=== PATIENT | female | born 1995 | race Hispanic/Latino ===

== ENCOUNTER 2017-06-22 21:16 | Inpatient (IN) | payer MEDICAID, SELFPAY ==
[2017-06-22] MEDS ORDERED: Ondansetron HCl/PF 4 MG/2 ML Vial ONE (22:07)
[2017-06-22 22:27] LABS: #Basophils 0.1 thou/uL (0.0-0.2); #Lymphocytes 2.1 thou/uL (1.20-3.40); #Monocytes 0.6 thou/uL (0.11-0.59); #Neutrophils 9.2 thou/uL (1.40-6.50); %Basophils 0.5 % (0.0-1.0); %Eosinophils 0.2 % (0.0-10.0); %Lymphocytes 17.3 % (28.0-48.0); %Monocytes 5.4 % (0.0-4.0); %Neutrophils 76.7 % (31.0-61.0); Hemoglobin 15.2 g/dL (12.0-16.0); Mean Corpuscular HGB CONC 33.7 g/dL (32.0-36.0); Mean Corpuscular Hemoglobin 28.9 pg (25.0-35.0); Mean Corpuscular Volume 85.7 fl (77.0-87.0); Mean Platelet Volume 6.8 fL (7.4-10.4); Platelet Count 460 thou/uL (130-400); Red Blood Cell (RBC) Count 5.27 mill/uL (4.00-5.20)
[2017-06-22 22:47] LABS: ALT (SGPT) 44 U/L (8-55); AST (SGOT) 39 U/L (5-34); Albumin 4.2 g/dL (3.5-5.0); Alkaline Phosphatase 114 U/L (40-150); Anion Gap 19 mmol/L (10-20); BUN (Urea Nitrogen) 13 mg/dL (7.0-18.7); Bilirubin, Total 0.5 mg/dL (0.2-1.2); Calc. Creatinine Clearance 0 mL/min (70-130); Calcium 9.2 mg/dL (7.8-10.44); Carbon Dioxide 12 mmol/L (22-29); Chloride 113 mmol/L (98-107); Estimated GFR-MDRD 76; Globulin 3.2 g/dL (2.4-3.5); Glucose 264 mg/dL (70-105); Potassium 3.9 mmol/L (3.5-5.1); Protein, Total 7.4 g/dL (6.0-8.3); Sodium 140 mmol/L (136-145)
[2017-06-23] MEDS ORDERED: D5 1/2 NS w/20 mEq KCL 1,000 ML ONE (00:17)
[2017-06-23] MEDS ORDERED: D5 1/2 NS w/20 mEq KCL 1,000 ML IV PRN (03:49)
[2017-06-23] MEDS ORDERED: NS 0.9% w/ 20 MEQ KCL 1,000 ML IV PRN ×2 (03:49)
[2017-06-23] MEDS ORDERED: Dextrose 5 %-0.45 % NaCl 1,000 ML IV PRN (03:49)
[2017-06-23] MEDS ORDERED: Sodium Chloride 0.9% 1,000 ML IV PRN ×4 (03:49)
[2017-06-23] MEDS ORDERED: CCU Electrolyte Replacement 1 EACH IVPB ONE (03:49)
[2017-06-23] MEDS ORDERED: Potassium Chloride 40 MEQ in Sodium Chloride 0.9% 250 ML 250 ML IVPB PRN (03:51)
[2017-06-23] MEDS ORDERED: CCU ELECTROLYTE REPLACEMENT PROTOCOL FS PRN (03:51)
[2017-06-23] MEDS ORDERED: Potassium Phosphate 9 MMOL in Sodium Chloride 0.9% 100 ML IVPB PRN (03:51)
[2017-06-23] MEDS ORDERED: Potassium Phosphate 12 MMOL in Sodium Chloride 0.9% 250 ML 250 ML IV PRN (03:51)
[2017-06-23] MEDS ORDERED: Potassium Chloride 40 MEQ in Premix Bag 1 BAG IVPB PRN (03:51)
[2017-06-23] MEDS ORDERED: Magnesium 2 GM/NS 0.9% 100 ML 2 GM in Premix Bag 1 BAG IVPB PRN (03:51)
[2017-06-23] MEDS ORDERED: Magnesium Oxide 400 MG TAB PO PRN ×2 (03:51)
[2017-06-23] MEDS ORDERED: Potassium Chloride 20 MEQ TAB PO PRN (03:51)
[2017-06-23] MEDS ORDERED: Potassium Phosphate 15 MMOL in Sodium Chloride 0.9% 250 ML 250 ML IV PRN (03:51)
[2017-06-23 05:19] LABS: Anion Gap 13 mmol/L (10-20); BUN (Urea Nitrogen) 12 mg/dL (7.0-18.7); Calc. Creatinine Clearance 0 mL/min (70-130); Calcium 8.8 mg/dL (7.8-10.44); Carbon Dioxide 14 mmol/L (22-29); Chloride 115 mmol/L (98-107); Estimated GFR-MDRD Greater than 90; Glucose 156 mg/dL (70-105); Potassium 3.4 mmol/L (3.5-5.1); Sodium 139 mmol/L (136-145)
--- NOTE | 2017-06-23 06:40 | HP ---
CHIEF COMPLAINT: DKA. HISTORY OF PRESENT ILLNESS: She transferred from another hospital [place] because of DKA. She presented to the ED with nausea, vomiting, and tachycardia. She was over there with an anion gap of 26, sugar was high, so they started insulin drip over there and started transfer here. Further questioning, she says she has been out of insulin for a few days and then started having nausea, vomiting, and normally she complains of any medication. Medication she takes at home Levemir 15 and 35 insulin. She lost her insurance , so she did not take her medication. In the ER, she wanted to have DKA and started IV insulin drip with D5 because sugar was less than 250. PAST MEDICAL HISTORY: Diabetes type I. PAST OB-EMPLOYEE BENEFITS COORDINATOR HISTORY: 1, para 1. PAST SURGICAL HISTORY: . PSYCHIATRIC HISTORY: No previous history. SOCIAL HISTORY: Denies alcohol use. Denies drug use. Has no smoking history. FAMILY HISTORY: Both parents have diabetes. In the ER, she was given Zofran, Rocephin, and potassium. REVIEW OF SYSTEMS: She denies any fever. No throat symptoms, no blurry vision. Cardiovascular: She was tachycardic. No chest pain, no short of breath. Respiratory: No wheezing, no cough. Gastrointestinal: She does have nausea, vomiting, no diarrhea. Genitourinary: No belly pain. Musculoskeletal : No back pain. Endocrine: She does have polyuria, polydipsia. All other review of systems negative except in the H&P. PHYSICAL EXAMINATION: GENERAL: When examined her, she is tachycardic. VITAL SIGNS: Pulse 180, blood pressure 170/72, respiration rate 18, temperature 98.4. She is alert. HEENT: Atraumatic, normocephalic. Pupils are round and reactive. Extraocular muscles intact. Ear and throat are normal. Tongue mucosa moist. NECK: Supple, no JVD, no thyromegaly, no carotid bruit. LUNGS: Chest is normal risk of breathing, no added sound. CARDIOVASCULAR: S1, S2 audible. No S3, S4. ABDOMEN: Soft. Bowel sounds audible, no organomegaly. No guarding, rigidity. EXTREMITIES: No pedal edema seen at times. NEUROLOGIC: No focal deficit. LABORATORY DATA: Shows WBC 12.1, hemoglobin 15.2, hematocrit 45.1, platelets 460. Chemistry: Sodium 140, potassium 3.9, chloride 113, carbon dioxide 12, anion gap 19, BUN 30, creatinine 0.9, 265 glucose. AST 39, ALT 44, albumin 4.2 , globulin 3.2. ASSESSMENT AND PLAN: Diabetic ketoacidosis with type 1 diabetes with plan to admit to ICU with DKA protocol, IV insulin, IV fluid, D5 with normal saline with potassium. BMP q.6 hour. Urinary tract infection; will IV Rocephin 1 gm daily and obtain urine culture. Deep venous thrombosis prophylaxis, Lovenox. MTDD
[2017-06-23 08:03] LABS: Anion Gap 14 mmol/L (10-20); BUN (Urea Nitrogen) 12 mg/dL (7.0-18.7); Calc. Creatinine Clearance 0 mL/min (70-130); Calcium 8.6 mg/dL (7.8-10.44); Carbon Dioxide 15 mmol/L (22-29); Chloride 115 mmol/L (98-107); Estimated GFR-MDRD Greater than 90; Glucose 215 mg/dL (70-105); Potassium 3.6 mmol/L (3.5-5.1); Sodium 140 mmol/L (136-145)
[2017-06-23] MEDS ORDERED: Insulin Detemir 100 UNITS/ML 18 UNITS in Pre-Filled Syringe 1 EACH SC SCH (10:15)
[2017-06-23 10:18] LABS: ALT (SGPT) 48 U/L (8-55); AST (SGOT) 73 U/L (5-34); Albumin 3.1 g/dL (3.5-5.0); Alkaline Phosphatase 82 U/L (40-150); Anion Gap 13 mmol/L (10-20); BUN (Urea Nitrogen) 11 mg/dL (7.0-18.7); Bilirubin, Total 0.6 mg/dL (0.2-1.2); Calc. Creatinine Clearance 0 mL/min (70-130); Calcium 8.3 mg/dL (7.8-10.44); Carbon Dioxide 15 mmol/L (22-29); Chloride 115 mmol/L (98-107); Estimated GFR-MDRD Greater than 90; Globulin 2.3 g/dL (2.4-3.5); Glucose 281 mg/dL (70-105); Potassium 3.6 mmol/L (3.5-5.1); Protein, Total 5.4 g/dL (6.0-8.3); Sodium 139 mmol/L (136-145)
[2017-06-23] MEDS ORDERED: Insulin Regular 300 UNITS/3 ML VIAL SC PRN (10:38)
[2017-06-23] MEDS ORDERED: Dextrose 50% Abboject 50 ML SYRINGE SLOW IVP PRN (10:38)
[2017-06-23] MEDS ORDERED: Dextrose 5% in Water 1,000 ML IV PRN (10:38)
[2017-06-23 11:00] LABS: Hemoglobin A1c 13.2 % (4.0-6.0)
[2017-06-23] MEDS ORDERED: Insulin Detemir 100 UNITS/ML 30 UNITS in Pre-Filled Syringe SC SCH (11:00)
[2017-06-23 12:49] LABS: Anion Gap 13 mmol/L (10-20); BUN (Urea Nitrogen) 11 mg/dL (7.0-18.7); Calc. Creatinine Clearance 0 mL/min (70-130); Calcium 8.5 mg/dL (7.8-10.44); Carbon Dioxide 14 mmol/L (22-29); Chloride 114 mmol/L (98-107); Estimated GFR-MDRD Greater than 90; Glucose 332 mg/dL (70-105); Potassium 3.8 mmol/L (3.5-5.1); Sodium 137 mmol/L (136-145)
--- NOTE | 2017-06-23 13:37 | PDOC.EVN ---
Event Note - Event Note Event Note: S: pt is Seen today, alert and oriented, No nausea or vomting. She is hungry to eat food. O: reviwed all the vitals and Labs, Pt AG is closed. A: DKA/ HTN/ Morbidobesity P: Plan to Transition to SC insulin, discussed with nurse, Will do Levemnir 30untis Now and d/c insulin drip in 2 hrs, pt had Totoal insulin requirement of 12 hrs is 100untis, Will need to give bed time insulin too to abvoide rebound hyperglycemia, will do 10untis, and plan to graduaally increase to keep BG 140- 180 and fasting < 110. Pt will need to reffered to Endocrinology as Outpatient.
[2017-06-23] MEDS ORDERED: Insulin Regular 300 UNITS/3 ML VIAL ONE (17:49)
[2017-06-23] MEDS ORDERED: Insulin Detemir 100 UNITS/ML 25 UNITS in Pre-Filled Syringe 1 EACH SC SCH (18:15)
[2017-06-23] MEDS ORDERED: Insulin Detemir 100 UNITS/ML 10 UNITS in Pre-Filled Syringe SC SCH (21:00)
[2017-06-23] MEDS ORDERED: cefTRIAXone\\ROCEPHIN 1 GM in Sodium Chloride 0.9% 100 ML IVPB SCH (22:00)
[2017-06-23 22:15] LABS: Anion Gap 14 mmol/L (10-20); BUN (Urea Nitrogen) 9 mg/dL (7.0-18.7); Calc. Creatinine Clearance 0 mL/min (70-130); Carbon Dioxide 17 mmol/L (22-29); Chloride 109 mmol/L (98-107); Estimated GFR-MDRD Greater than 90; Glucose 188 mg/dL (70-105); Potassium 3.2 mmol/L (3.5-5.1); Sodium 137 mmol/L (136-145)
[2017-06-24 05:53] LABS: Anion Gap 16 mmol/L (10-20); BUN (Urea Nitrogen) 7 mg/dL (7.0-18.7); Calc. Creatinine Clearance 0 mL/min (70-130); Calcium 8.9 mg/dL (7.8-10.44); Carbon Dioxide 15 mmol/L (22-29); Chloride 110 mmol/L (98-107); Estimated GFR-MDRD Greater than 90; Glucose 104 mg/dL (70-105); Sodium 138 mmol/L (136-145)
[2017-06-24 06:01] LABS: Potassium 2.9 mmol/L (3.5-5.1)
[2017-06-24 06:16] VITALS: BMI 29.0
[2017-06-24] MEDS: Potassium Chloride 40 MEQ in Sodium Chloride 0.9% 250 ML 250 ML IVPB SCH ×2 (08:00→08:21)
[2017-06-24] MEDS ORDERED: Sodium Chloride 0.9% 10 ML ONE (08:19)
[2017-06-24] MEDS ORDERED: Insulin Detemir 100 UNITS/ML 30 UNITS in Pre-Filled Syringe SC SCH (09:00)
[2017-06-24 10:52] LABS: Magnesium 1.5 mg/dL (1.7-2.2); Potassium 3.4 mmol/L (3.5-5.1)
[2017-06-24 11:46] VITALS: BP 94/57; TEMP 98.1
[2017-06-24] MEDS ORDERED: Magnesium 2 GM/NS 0.9% 100 ML 2 GM in Premix Bag 1 BAG IVPB SCH (15:15)
--- NOTE | 2017-06-24 16:26 | DIS ---
DATE OF ADMISSION: 06/23/2017 DATE OF DISCHARGE: 06/24/2017 ADMITTING DIAGNOSIS: Acute diabetic ketoacidosis. DISCHARGE DIAGNOSIS: Acute diabetic ketoacidosis. SECONDARY DIAGNOSIS: Hypertension. HISTORY OF PRESENT ILLNESS AND HOSPITAL COURSE: In brief, this is a 21-year-old young white female w ith a known history of type 1 diabetes, who was transferred from [place] for DKA and she was admitte d to the ER and had an anion gap of 26 with very high blood sugars. The patient was started on insul in drip per DKA protocol and was closely monitored. The patient needed 100 units of insulin total for 12 hours, so she was started on 30 units of Levemir and then after 2 hours her insulin drip was stopped. The patient had a rebound hypoglycemia going u p to 300, so she was started on high intensity sliding scale. The same day, she was started on 25 un its of Levemir again, so her blood sugar the following morning was 115, and she maintained less than 200. The patient was taking regular insulin of 35 units in the morning and Levemir of 25 units in th e evening, which was not sufficient and her A1c was 13.2. The patient had a very poor blood sugar co ntrol prior to this. So, the patient was recommended to be seen by tax economist as outpatient. H er anion gap was closed and blood sugars are well controlled on the day of discharge. She had some e lectrolyte abnormalities with low potassium and with low magnesium, which was corrected with protocol . The patient is discharged home in stable condition. PHYSICAL EXAMINATION: VITAL SIGNS: Blood pressures are 110/58, heart rate is 74, respirations 18, saturation 100%. GENERAL: The patient is moderately built and moderately nourished. She does not appear to be in acu te distress at this time. She is alert and oriented x3. HEENT: Atraumatic, normocephalic. PERRLA. Extraocular muscles were intact. Oral mucosa is pink an d moist. CARDIOVASCULAR: S1 and S2 normal. No murmurs, rubs or gallops. LUNGS: Bilateral air entry was equal. No wheezing, no crackles. DISCHARGE MEDICATIONS: The patient was discharged home on Levemir 35 units in the morning and 25 uni ts in the evening with before breakfast and before dinner. DISCHARGE INSTRUCTIONS: Continue activity as tolerated. Advised to follow up with primary care phys ician and have her referred to Endocrinology. I advised the patient to check her blood sugars 2-3 ti mes a day and educated about keeping her fasting blood sugars less than 110. Advised to stick to a diabetic diet. Advised to increase physical activity to lose weight. Advised to return back to the ER if the patient develops any persistent nausea, vomiting, and high bl ood sugars. I spent 35 minutes with this patient on the day of discharge.
[2017-06-24] MEDS ORDERED: cefTRIAXone\\ROCEPHIN 1 GM, Syringe 0.4 ML in Sterile Water 9.6 ML SLOW IVP SCH (22:00)
== END 2017-06-24 15:55 | disposition home or self-care (01) | DRG 638 ==
LOC: ERS 21:16 → ERHOLD 06-23 02:09 → 2NO 06-24 00:58 → 3SE 06-24 07:54
PROVIDERS: ADMIT Family Medicine; ATTEND Family Medicine
DX: E10.10 Type 1 diabetes mellitus with ketoacidosis without coma (principal); N39.0 Urinary tract infection, site not specified; E66.01 Morbid (severe) obesity due to excess calories; I10 Essential (primary) hypertension; Z79.4 Long term (current) use of insulin; Z68.29 Body mass index [BMI] 29.0-29.9, adult
CPT/HCPCS: 36415; 36416; 80048; 82010; 83036; 83735; 96365; 96366; 96367; 96372; 96375; 96376; A4216; J0696; J1815; J2405; J3480; J7050

== ENCOUNTER 2020-04-26 18:59 | Observation (INO) | payer OTHER ==
[2020-04-26 20:08] LABS: #Eosinphils 0.1 thou/uL (0.0-0.7); #Lymphocytes 1.6 thou/uL (1.20-3.40); #Monocytes 0.4 thou/uL (0.11-0.59); #Neutrophils 8.6 thou/uL (1.40-6.50); %Basophils 0.2 % (0.0-1.0); %Eosinophils 0.5 % (0.0-10.0); %Lymphocytes 14.9 % (21.0-51.0); %Monocytes 4.1 % (0.0-10.0); %Neutrophils 80.3 % (42.0-75.0); Hemoglobin 12.5 g/dL (12.0-16.0); Mean Corpuscular HGB CONC 35.2 g/dL (32.0-36.0); Mean Corpuscular Hemoglobin 28.1 pg (27.0-31.0); Mean Platelet Volume 6.6 fL (7.4-10.4); Platelet Count 481 thou/uL (130-400); RBC Distribution Width 11.9 % (11.5-14.5); Red Blood Cell (RBC) Count 4.43 mill/uL (4.20-5.40); White Blood Cell (WBC) Count 10.7 thou/uL (4.8-10.8)
[2020-04-26 20:29] LABS: ALT (SGPT) 34 U/L (8-55); AST (SGOT) 26 U/L (5-34); Albumin 3.4 g/dL (3.5-5.0); Alkaline Phosphatase 102 U/L (40-110); Anion Gap 16 mmol/L (10-20); BUN (Urea Nitrogen) 12 mg/dL (7.0-18.7); Bilirubin, Total 0.4 mg/dL (0.2-1.2); Calc. Creatinine Clearance 0 mL/min (70-130); Calcium 9.4 mg/dL (7.8-10.44); Carbon Dioxide 22 mmol/L (22-29); Chloride 97 mmol/L (98-107); Estimated GFR-MDRD Greater than 90; Globulin 3.7 g/dL (2.4-3.5); Glucose 366 mg/dL (70-105); Potassium 4.1 mmol/L (3.5-5.1); Protein, Total 7.1 g/dL (6.0-8.3); Sodium 131 mmol/L (136-145)
[2020-04-26 20:53] LABS: Base Excess-Venous -1.6 mmol/L (-2.0 to 3.0); Bicarbonate (HCO3v) 23.9 mmol/L (22.0-28.0); CO2 Tension (PvCO2) 42.1 mmHg (40.0-50.0); Calcium, Ionized 1.14 mmol/L (1.15-1.33); Chloride 97 mmol/L (98-107); Hemoglobin - Calc 12.5 g/dL (12.0-16.0); Sodium 131 mmol/L (138-145); T. Carbon Dioxide 25.2 mmol/L (22.0-28.0); vO2 Saturation-calc 83.7 % (60.0-85.0)
[2020-04-26] MEDS ORDERED: Metoclopramide HCl 10 MG/2 ML VIAL ONE (21:34)
[2020-04-26] MEDS ORDERED: diphenhydrAMINE 50 MG/ML VIAL ONE (21:34)
[2020-04-26] MEDS ORDERED: Acetaminophen 325 MG TAB PO PRN (23:15)
[2020-04-26] MEDS ORDERED: Calcium Carbonate 500 MG ChewTAB PO PRN (23:15)
[2020-04-26] MEDS ORDERED: Ondansetron PF 4 MG/2 ML Vial SLOW IVP PRN (23:15)
--- NOTE | 2020-04-26 23:22 | PDOC.FPRHP ---
- History of Present Illness Chief Complaint: uncontrolled DM1 in History of Present Illness: 24 yo at 12wks gestation by LMP directly admitted from [facility] on 04/26 for uncontrolled DM1 in . Patient's A1c in December 2019 was 12.3. She takes 35units of levemir BID and Humalog SSI, 5units for every 50 over 150. Angela explains she typically uses 15-25units per day for correction. Her fasting glucose ranges from 190-200s and her post-prandials are often greater than 300. She was previously seen by Dr. Ghotra in this who performed a dating ultrasound and referred her to our clinic due to her high risk. Patient's last resulted in a pLTCS for failure to progress. She was induced due to preeclampsia with severe features at 36 weeks and delivered at 36.2. Patient also complains of nausea and vomiting for the duration of this , explaining it is sometimes difficult for her to tolerate food. Patient's PCP is Dr. Urban in [place]. She does not have an energy administrator. - Allergies/Adverse Reactions Allergies Allergy/AdvReac Type Severity Reaction Status Date / Time No Known Allergies Allergy Verified 04/26/20 22:40 - Home Medications Medication Instructions Recorded Confirmed Type Insulin Detemir 100 UNITS/ML 25 unit SQ ACHS 30 Days vial 06/24/17 04/26/20 Rx [Levemir] Insulin Detemir 100 UNITS/ML 35 units FS DAILY-AC 30 Days vial 06/24/17 04/26/20 Rx [Levemir] - History PMHx: DM1, diagnosed age 7. SAB 2015 (from [facility] record review of last ) PSHx: pLTCS 2017 at 36.2 wks for failure to progress following induction at 36wks for preeclampsia with severe features FHx: Non-contributory Social: Denies tobacco, alcohol or drug use - Review of Systems General: denies: fever/chills Eyes: denies: vision changes Respiratory: denies: shortness of breath Cardiovascular: denies: chest pain Gastrointestinal: reports: nausea, vomiting. denies: diarrhea, constipation, abdominal pain Genitourinary: denies: dysuria, polyuria Skin: denies: rashes, itching Musculoskeletal: denies: pain Neurological: denies: weakness - Vital signs BP: 144/78 HR: 107 RR: 18 Tmax: 98.9 Pox: 97% on RA Wt: 86kg - Physical Exam Constitutional: NAD, awake, alert and oriented HEENT: normocephalic and atraumatic, PERRLA, no scleral icterus, grossly normal vision, grossly normal hearing Neck: FROM Heart: RRR, no murmurs/rubs/gallops, pulses present, no edema Lungs: CTAB, no respiratory distress, no wheezing Abdomen: soft, non-tender Musculoskeletal: normal structure, ROM grossly normal Neurological: no focal deficit Skin: no rash/lesions Psychiatric: normal mood and affect, good judgment and insight, intact recent and remote memory FMR H&P: Results - Labs Result Diagrams: 04/26/20 19:53 04/26/20 19:53 Lab results: WBC 10.7 thou/uL (4.8-10.8) 04/26/20 19:53 Hgb 12.5 g/dL (12.0-16.0) 04/26/20 19:53 Hct 35.4 % (36.0-47.0) L 04/26/20 19:53 MCV 80.0 fL (78.0-98.0) 04/26/20 19:53 Plt Count 481 thou/uL (130-400) H 04/26/20 19:53 Neutrophils % 80.3 % (42.0-75.0) H 04/26/20 19:53 VBG pCO2 42.1 mmHg (40.0-50.0) 04/26/20 20:48 VBG pO2 50.3 mmHg (35.0-45.0) H 04/26/20 20:48 Sodium 131 mmol/L (136-145) L 04/26/20 19:53 Potassium 4.1 mmol/L (3.5-5.1) 04/26/20 19:53 Chloride 97 mmol/L (98-107) L 04/26/20 19:53 Carbon Dioxide 22 mmol/L (22-29) 04/26/20 19:53 BUN 12 mg/dL (7.0-18.7) 04/26/20 19:53 Creatinine 0.75 mg/dL (0.6-1.1) 04/26/20 19:53 Glucose 366 mg/dL (70-105) H 04/26/20 19:53 Calcium 9.4 mg/dL (7.8-10.44) 04/26/20 19:53 Total Bilirubin 0.4 mg/dL (0.2-1.2) 04/26/20 19:53 AST 26 U/L (5-34) 04/26/20 19:53 ALT 34 U/L (8-55) 04/26/20 19:53 Alkaline Phosphatase 102 U/L (40-110) 04/26/20 19:53 Serum Total Protein 7.1 g/dL (6.0-8.3) 04/26/20 19:53 Albumin 3.4 g/dL (3.5-5.0) L 04/26/20 19:53 FMR H&P: A/P - Plan 24 yo at 12.0 wks by LMP presenting for uncontrolled DM1 Uncontrolled DM1 in -A1c 12/2019 12.3 -Home meds: 35units levemir BID, Humalog SSI (15-25u per day). Fasting BG 200s, postprandials >300. -Ordered 37units levemir BID, 5units humalog pre-meal, Aggressive sliding scale -Will monitor BGs and adjust pre-meal insulin as needed sIUP in first trimester -12.0wks based on ONI of 11/08/2020. Patient says she is 13.0wks but is unsure. -Dating ultrasound performed by Dr. Ghotra, those records have been requested. Unsure if ONI patient reports is based on LMP or dating ultrasound. -Consider MFM consult inpatient to perform anatomy US Hx of preeclampsia with severe features in 1st -BP 144/78 on admission, continue to monitor -24 hour urine protein pending Nausea and vomiting with -vitamin B6, unisom PCP: Wilmar PCP-OB: Arnold Dispo: discharge pending regulation of glucose and establishing adequate insulin regimen FMR H&P: Upper Level - Plan Date/Time: 04/26/20 [id number] ISanju DO, have evaluated this patient and agree with findings/plan as outlined by international logistics analyst resident. Pertinent changes/additions are listed here. 24 yo at 12+ wks GA with type 1 dm she presents as a direct admit from clinic for uncontrolled diabetes, she is asymptomatic at this time. She has taken her morning insulin but not her evening basal. she covers meal time insulin and does not use pre-meal, it has been >5years since she has had dka. she is in NAD on exam, abd nttp, pulses present. initial labs show elevated glucose, otherwise wnl. we will continue her basal insulin and begin pre-meal insulin. aggressive SSI insulin ordered, increase regimen based on coverage needs. admit to silverware assembler obs for ELOS<48hrs.
[2020-04-26] MEDS ORDERED: Insulin Glargine 37 UNITS in Pre-Filled Syringe 1 EACH SC SCH (23:30)
[2020-04-26] MEDS ORDERED: Dextrose 50% Abboject 50 ML SYRINGE SLOW IVP PRN (23:47)
[2020-04-26] MEDS ORDERED: Dextrose 5% in Water 1,000 ML IV PRN (23:47)
[2020-04-27] MEDS: HumaLOG 300 UNITS/3 ML VIAL SC PRN ×2 (00:09→06:04)
--- NOTE | 2020-04-27 06:48 | PDOC.FM ---
- Subjective Subjective: Pt denies polyuria, polyphagia states she has had some weight loss since becoming , due to n/v denies current nausea denies vag bleeding, d/c, pelvic cramping Pt sates she had a miscarriage @ 9 weeks and has hx of pLTCS @ term. - Objective MAR Reviewed: Yes Vital Signs & Weight: Vital Signs (12 hours) Temp Pulse Resp BP Pulse Ox 04/26/20 22:15 98.9 F 107 H 18 144/78 H 97 Weight Weight 85.956 kg I&O: 04/25/20 04/26/20 04/27/20 06:59 06:59 06:59 Output Total 200 Balance -200 Result Diagrams: 04/26/20 19:53 04/26/20 19:53 Phys Exam - Physical Examination Constitutional: NAD HEENT: moist MMs, sclera anicteric Neck: supple, full ROM Respiratory: no wheezing, no rales, no rhonchi, clear to auscultation bilateral Cardiovascular: RRR, no significant murmur, no rub Gastrointestinal: soft, non-tender, no distention, positive bowel sounds Musculoskeletal: no edema, pulses present Neurological: non-focal, moves all 4 limbs Lymphatic: no nodes Psychiatric: normal affect, A&O x 3 Skin: no rash, normal turgor, cap refill <2 seconds Dx/Plan (1) 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 White Class D pre-gestational DM, with hyperglycemia - dx with Type 1 DM at Age 7 y/o -A1c 12/2019 12.3 -Home meds: 35units levemir BID, Humalog SSI (15-25u per day). Fasting BG > 200s, postprandials >300 and sent form clinic for insulin titration in hx. -Ordered 37 units levemir BID, 5 units humalog pre-meal, Aggressive sliding scale as well. -received 11 units @ 6 AM this morning SSI. will titrate up long acting as appropriate. -Will monitor BGs and adjust pre-meal/long acting insulin as needed -h-hydroxybutrate 1.47 - daily BMP sIUP in first trimester -12.1wks based on ONI of 11/08/2020. Patient says she is 13.0wks but is unsure. -Dating ultrasound performed by Dr. Ghotra, those records have been requested. Unsure if ONI patient reports is based on LMP or dating ultrasound. -Consider MFM consult inpatient to perform - high dose folic acid 4 mg daily. Elevated BP without dx of HTN. -will continue vital signs, could be dx of cHTN. -treat if >160/110 -24 hr urine protein Hx of preeclampsia with severe features in 1st -BP 144/78 on admission, continue to monitor -24 hour urine protein pending Nausea and vomiting with -vitamin B6, dicyclomine PCP: Wilmar PCP-OB: Arnold Dispo: inpt>2 hx nights anticipated. titrating insulin regimen to meet pt's needs. Addendum - Attending - Attending Attestation Date/Time: 04/27/20 1032 I personally evaluated the patient and discussed the management with Dr. Hutson I agree with the History, Examination, Assessment and Plan documented above with any addition or exceptions noted below. Increased lantus to 45 units BID and novalog to [address] Hutson spoke with Dr. Ghotra's office who stated patient had a dating US on 03/28 that dated her at 9.2 wks giving her a final EDC of 10/29/20 and making her 13.4 wks today. Start ASA for PIH PPx. Continue 24 hr urine protein. If BP continues to be >140/90 will order baseline EKG. Will continue aggressive titration of insulin with goal fasting <95 and 2hr PP <120
[2020-04-27] MEDS ORDERED: HumaLOG 300 UNITS/3 ML VIAL SC SCH (08:00)
[2020-04-27] MEDS ORDERED: Insulin Glargine 37 UNITS in Pre-Filled Syringe 1 EACH SC SCH (09:00)
[2020-04-27] MEDS ORDERED: Folic Acid 1 MG TAB PO SCH (09:00)
[2020-04-27] MEDS ORDERED: Aspirin 81 mg Enteric Coated Tablet PO SCH (09:45)
[2020-04-27] MEDS ORDERED: Insulin Regular 300 UNITS/3 ML VIAL SC PRN (10:20)
[2020-04-27] MEDS: Prenatal Vitamin 1 TAB PO SCH (10:57)
[2020-04-27] MEDS: Folic Acid 1 MG TAB PO SCH (10:57)
[2020-04-27] MEDS: Insulin Glargine 45 UNITS in Pre-Filled Syringe 1 EACH SC SCH ×2 (10:58→21:16)
[2020-04-27] MEDS: HumaLOG 300 UNITS/3 ML VIAL SC SCH ×3 (10:59→19:16)
[2020-04-27 14:06] LABS: Anion Gap 13 mmol/L (10-20); BUN (Urea Nitrogen) 7 mg/dL (7.0-18.7); Calc. Creatinine Clearance 220 mL/min (70-130); Calcium 9.1 mg/dL (7.8-10.44); Carbon Dioxide 24 mmol/L (22-29); Chloride 102 mmol/L (98-107); Estimated GFR-MDRD Greater than 90; Glucose 100 mg/dL (70-105); Potassium 3.7 mmol/L (3.5-5.1); Sodium 135 mmol/L (136-145)
[2020-04-27] MEDS: Ondansetron ODT 4 MG TAB PO PRN ×2 (14:11→18:18)
[2020-04-27 14:56] LABS: SARS-CoV-2 MS2 Positive; SARS-CoV-2 N Gene Negative; SARS-CoV-2 S Gene Negative; SARS-CoV-2 by NAA Not Detected (NotDetected); SARS-CoV-2 orf1ab Negative
[2020-04-27] MEDS ORDERED: FLU VACC QS2020-21(6MOS UP)/PF 60 MCG/0.5 ML SYRINGE IM ONE (21:00)
[2020-04-27] MEDS ORDERED: pyridOXINE 50 MG (B6) TAB PO SCH (21:00)
[2020-04-27] MEDS ORDERED: Doxylamine 25 MG TAB PO SCH (21:00)
[2020-04-28 02:14] LABS: Protein, Urine 30 mg/dL (1-14)
[2020-04-28 02:27] LABS: Protein - 24 Hr 1575 mg/24 hr (Less than 300); Urine Total Volume 5250 mL (600-1600)
--- NOTE | 2020-04-28 06:42 | PDOC.FM ---
- Subjective Subjective: No acute overnight events. She denies any symptoms of hypoglycemia including headache, dizziness, shakiness, nausea, sweating. She also denies any abdominal pain, n/v, chest pain, SOB. Overall, states she is feeling better than yesterday. She has no questions, concerns, or additional complaints. - Objective MAR Reviewed: Yes Vital Signs & Weight: Vital Signs (12 hours) Temp Pulse Resp BP BP Pulse Ox 04/28/20 04:38 98.4 F 92 18 124/71 97 04/28/20 00:20 98.7 F 91 16 111/56 L 98 04/27/20 19:16 98.5 F 04/27/20 19:14 100.1 F H 103 H 16 132/76 99 Weight Weight 85.956 kg I&O: 04/26/20 04/27/20 04/28/20 06:59 06:59 06:59 Intake Total 960 2960 Output Total 200 2000 Balance 760 960 Result Diagrams: 04/26/20 19:53 04/28/20 06:00 Phys Exam - Physical Examination Constitutional: NAD HEENT: moist MMs Neck: supple Respiratory: no wheezing, no rales, no rhonchi, clear to auscultation bilateral Cardiovascular: RRR, no significant murmur Gastrointestinal: soft, non-tender, no distention, positive bowel sounds Musculoskeletal: no edema, pulses present Neurological: moves all 4 limbs Psychiatric: normal affect, A&O x 3 Skin: no rash, normal turgor, cap refill <2 seconds Dx/Plan - Plan Plan: 24 yo at 12.1 wks by LMP presenting for uncontrolled DM1, White Class D. White Class D pre-gestational DM, with hyperglycemia - dx with Type 1 DM at Age 7 y/o - A1c 12/2019 12.3 - BG has been controlled on 45 lantus BID + 15 humalog WM over the past 24 hours - Will monitor BGs and adjust pre-meal/long acting insulin as needed through breakfast and lunch today - possible DC to home if BG remains wnl 2 hours after lunch - h-hydroxybutrate 1.47, no elevation of anion gap, not in DKA - daily BMP while inpatient - will need close f/u outpatient to make sure remains controlled in setting of outpatient diet sIUP in first trimester @ 13.5 wks by 9.2 wk [place], ONI 10/29/20; per records from US with Dr. Ghotra. - high dose folic acid 4 mg daily. Elevated BP without dx of HTN. - BP 144/78 on admission, cHTN was considered although BP has been wnl since then -treat if >160/110 -24 hr urine protein elevated at 1575 mg Hx of preeclampsia with severe features in 1st -BP 144/78 on admission, additional BP has been wnl - 24h urine protein elevated at 1575 mg; suspect more likely due to poorly controlled diabetes given no other signs or sx of pre-eclampsia at this time - started ASA for prevention Nausea and vomiting with -vitamin B6, dicyclomine PCP: Wilmar PCP-OB: Arnold Dispo: inpt>2 hx nights anticipated. titrating insulin regimen to meet pt's needs, possible discharge as BG has been better controlled Addendum - Attending - Attending Attestation Date/Time: 04/28/20 [id number] I personally evaluated the patient and discussed the management with Dr. Guadalupe. I agree with the History, Examination, Assessment and Plan documented above with any addition or exceptions noted below.
[2020-04-28 06:53] LABS: Anion Gap 17 mmol/L (10-20); BUN (Urea Nitrogen) 8 mg/dL (7.0-18.7); Calc. Creatinine Clearance 205 mL/min (70-130); Calcium 8.7 mg/dL (7.8-10.44); Carbon Dioxide 17 mmol/L (22-29); Chloride 105 mmol/L (98-107); Estimated GFR-MDRD Greater than 90; Glucose 71 mg/dL (70-105); Potassium 4.3 mmol/L (3.5-5.1); Sodium 135 mmol/L (136-145)
[2020-04-28] MEDS ORDERED: Aspirin 81 mg Enteric Coated Tablet PO SCH (09:00)
[2020-04-28] MEDS: Folic Acid 1 MG TAB PO SCH (09:07)
[2020-04-28] MEDS: Prenatal Vitamin 1 TAB PO SCH (09:08)
[2020-04-28] MEDS: Insulin Glargine 45 UNITS in Pre-Filled Syringe 1 EACH SC SCH (09:08)
[2020-04-28] MEDS: HumaLOG 300 UNITS/3 ML VIAL SC SCH ×2 (09:10→14:37)
[2020-04-28 14:36] VITALS: BP 128/73; TEMP 98.8
[2020-04-28] MEDS ORDERED: HumaLOG 300 UNITS/3 ML VIAL SC SCH (17:00)
--- NOTE | 2020-05-01 11:28 | DIS ---
DATE OF ADMISSION: 04/26/2020 DATE OF DISCHARGE: 04/28/2020 CONSULTS: None. PROCEDURES: None. PRIMARY DIAGNOSIS: White class D pregestational diabetes with hyperglycemia. SECONDARY DIAGNOSES: Single intrauterine in first trimester, elevated blood pressure without diagnosis of hypertension, history of preeclampsia, nausea, and vomiting in . DISCHARGE MEDICATIONS: 1. Aspirin 81 mg p.o. daily. 2. Folic acid 4 mg p.o. daily. 3. Humalog 10 units subcu t.i.d. with meals. 4. Levemir 45 units subcu b.i.d. 5. vitamin once daily. 6. Unisom 25 mg p.o. at bedtime. 7. Vitamin B6 25 mg p.o. at bedtime. Discontinued medications: 1. Levemir 25 units subcu before meals and at bedtime. 2. Levemir 35 units daily. HOSPITAL COURSE: This is a 24-year-old G3, P 1-0-1-2 at around 13 weeks by 9.2 week who was sent as a direct admission for uncontrolled type 1 diabetes white class B in . Prior to her admission, she reported taking 35 units of Levemir b.i.d. and using correctional insulin between 15 and 25 units per day. Her fasting glucoses were ranging in the 190s to 200s and her postprandials were often greater than 300. Reported difficulty controlling her blood sugar in the outpatient setting because nausea and vomiting during the became may get difficult for her to tolerate feedings which in turn makes it difficult for her to manage her mealtime insulin. She was admitted for better control of her hyperglycemia. Her insulin was titrated to meet her needs. She was ultimately discharged on 45 units of Levemir b.i.d. and 10 units of Humalog with meals. She was trialed on 15 units of Humalog with meals. This caused her blood sugar to drop into the 60s and so she was discharged with 10 units of Humalog with meals. During this admission she had no elevation of her anion gap and no evidence of DKA. I advised that she will need close outpatient followup and will need to follow a low carb diet throughout her . Of note, she did have one blood pressure of 144/78 on admission. She did not have any other elevated blood pressures throughout her entire admission. A 24 hour urine protein was collected, which was elevated at 1575 mg. This was suspected to be due to her poorly controlled diabetes rather than evidence of preeclampsia. She was started on aspirin for prevention of preeclampsia. She did have a history of preeclampsia with severe features in her previous . To help with her nausea and vomiting she was started on Unisom and vitamin B6 daily. DISPOSITION: Stable. DISCHARGE INSTRUCTIONS: 1. Location: Home. 2. Diet: Low carb diabetic diet. 3. Activity: As tolerated. 4. Followup: With [facility] in 1 week. Job ID: [id number]
== END 2020-04-28 18:05 | disposition home or self-care (01) ==
LOC: ERS 18:59 → 3SE 22:37
PROVIDERS: ADMIT Family Medicine; ATTEND Family Medicine
DX: O24.011 Pre-existing type 1 diabetes mellitus, in pregnancy, first trimester (principal); E10.65 Type 1 diabetes mellitus with hyperglycemia; O99.891 Other specified diseases and conditions complicating pregnancy; R03.0 Elevated blood-pressure reading, without diagnosis of hypertension; O21.9 Vomiting of pregnancy, unspecified; O34.211 Maternal care for low transverse scar from previous cesarean delivery; Z3A.12 12 weeks gestation of pregnancy; Z20.828 Contact with and (suspected) exposure to other viral communicable diseases
CPT/HCPCS: 36415; 36416; 80048; 80053; 82010; 82330; 82803; 84156; 84484; 85025; 87635; 93005; 96374; 96375; G0378; J1200; J1815; J2765; Q0162; U0003

== ENCOUNTER 2022-02-20 20:51 | Inpatient (IN) | payer OTHER ==
[2022-02-21 00:17] VITALS: BMI 32.4
[2022-02-21] MEDS ORDERED: NS 0.9% w/ 20 MEQ KCL 1,000 ML IV PRN ×2 (00:25)
[2022-02-21] MEDS ORDERED: Ondansetron PF 4 MG/2 ML Vial IVP PRN (00:25)
[2022-02-21] MEDS ORDERED: Dextrose 5 %-0.45 % NaCl 1,000 ML IV PRN (00:25)
[2022-02-21] MEDS ORDERED: Acetaminophen 325 MG TAB PO PRN (00:25)
[2022-02-21] MEDS ORDERED: Sodium Chloride 0.9% 1,000 ML IV PRN ×4 (00:25)
[2022-02-21] MEDS ORDERED: HUMULIN R 100 UNITS in Sodium Chloride 0.9% 100 ML IVPB SCH (00:30)
[2022-02-21 01:35] LABS: Anion Gap 21 mmol/L (10-20); BUN (Urea Nitrogen) 21 mg/dL (7.0-18.7); Calc. Creatinine Clearance 78 mL/min (70-130); Calcium 8.4 mg/dL (7.8-10.44); Carbon Dioxide 11 mmol/L (22-29); Chloride 113 mmol/L (98-107); Estimated GFR 53; Glucose 257 mg/dL (70-105); Phosphorus 2.6 mg/dL (2.3-4.7); Potassium 4.7 mmol/L (3.5-5.1); Sodium 140 mmol/L (136-145)
[2022-02-21] MEDS: D5 1/2 NS w/20 mEq KCL 1,000 ML IV PRN ×5 (04:06→20:29)
[2022-02-21 04:17] LABS: #Lymphocytes 2.7 thou/uL (1.20-3.40); #Monocytes 0.8 thou/uL (0.11-0.59); %Basophils 0.3 % (0.0-1.0); %Eosinophils 0.3 % (0.0-10.0); %Lymphocytes 18.6 % (21.0-51.0); %Monocytes 5.6 % (0.0-10.0); %Neutrophils 75.2 % (42.0-75.0); Hemoglobin 10.9 g/dL (12.0-16.0); Mean Corpuscular Hemoglobin 28.8 pg (27.0-31.0); Mean Corpuscular Volume 82.1 fL (78.0-98.0); Mean Platelet Volume 7.4 fL (7.4-10.4); Platelet Count 430 thou/uL (130-400); RBC Distribution Width 12.1 % (11.5-14.5); Red Blood Cell (RBC) Count 3.79 mill/uL (4.20-5.40); White Blood Cell (WBC) Count 14.6 thou/uL (4.8-10.8)
[2022-02-21 04:38] LABS: Anion Gap 16 mmol/L (10-20); BUN (Urea Nitrogen) 19 mg/dL (7.0-18.7); Calc. Creatinine Clearance 87 mL/min (70-130); Calcium 7.8 mg/dL (7.8-10.44); Carbon Dioxide 13 mmol/L (22-29); Chloride 112 mmol/L (98-107); Estimated GFR 61; Glucose 286 mg/dL (70-105); Sodium 137 mmol/L (136-145)
[2022-02-21 05:30] LABS: SARS-CoV-2 NAA Rapid Test Not Detected (NotDetected)
[2022-02-21 08:08] LABS: Hemoglobin A1c Greater than 14.0 % (4.0-6.0)
[2022-02-21] MEDS: Heparin 5,000 UNITS/ML VIAL SC SCH ×2 (08:31→20:29)
[2022-02-21 08:53] LABS: Anion Gap 11 mmol/L (10-20); BUN (Urea Nitrogen) 15 mg/dL (7.0-18.7); Calc. Creatinine Clearance 104 mL/min (70-130); Calcium 7.9 mg/dL (7.8-10.44); Carbon Dioxide 17 mmol/L (22-29); Chloride 115 mmol/L (98-107); Estimated GFR 76; Glucose 117 mg/dL (70-105); Potassium 3.9 mmol/L (3.5-5.1); Sodium 139 mmol/L (136-145)
[2022-02-22] MEDS: D5 1/2 NS w/20 mEq KCL 1,000 ML IV PRN ×4 (00:35→12:38)
[2022-02-22 04:26] LABS: #Basophils 0.1 thou/uL (0.0-0.2); #Eosinphils 0.3 thou/uL (0.0-0.7); #Lymphocytes 3.7 thou/uL (1.20-3.40); #Monocytes 0.7 thou/uL (0.11-0.59); #Neutrophils 8.7 thou/uL (1.40-6.50); %Basophils 0.8 % (0.0-1.0); %Eosinophils 2.4 % (0.0-10.0); %Monocytes 5.4 % (0.0-10.0); %Neutrophils 64.5 % (42.0-75.0); Hemoglobin 12.3 g/dL (12.0-16.0); Mean Corpuscular Hemoglobin 28.4 pg (27.0-31.0); Mean Corpuscular Volume 83.8 fL (78.0-98.0); Mean Platelet Volume 7.3 fL (7.4-10.4); Platelet Count 445 thou/uL (130-400); RBC Distribution Width 12.4 % (11.5-14.5); Red Blood Cell (RBC) Count 4.34 mill/uL (4.20-5.40); White Blood Cell (WBC) Count 13.6 thou/uL (4.8-10.8)
[2022-02-22 04:43] LABS: Anion Gap 12 mmol/L (10-20); BUN (Urea Nitrogen) 6 mg/dL (7.0-18.7); Calc. Creatinine Clearance 124 mL/min (70-130); Calcium 7.9 mg/dL (7.8-10.44); Carbon Dioxide 14 mmol/L (22-29); Chloride 113 mmol/L (98-107); Estimated GFR 93; Glucose 180 mg/dL (70-105); Potassium 3.8 mmol/L (3.5-5.1); Sodium 135 mmol/L (136-145)
[2022-02-22] MEDS: Heparin 5,000 UNITS/ML VIAL SC SCH ×2 (08:15→20:13)
[2022-02-22] MEDS ORDERED: Dextrose 5% in Water 1,000 ML IV PRN (14:17)
[2022-02-22] MEDS ORDERED: Dextrose 50% Abboject 50 ML SYRINGE SLOW IVP PRN (14:17)
[2022-02-22] MEDS ORDERED: Insulin Glargine 30 UNITS/0.3 ML VIAL SC SCH (15:00)
[2022-02-22] MEDS: HumaLOG 300 UNITS/3 ML VIAL SC PRN ×3 (18:45→23:58)
[2022-02-23 04:07] LABS: #Eosinphils 0.4 thou/uL (0.0-0.7); #Lymphocytes 3.7 thou/uL (1.20-3.40); #Monocytes 0.6 thou/uL (0.11-0.59); #Neutrophils 4.6 thou/uL (1.40-6.50); %Basophils 0.3 % (0.0-1.0); %Eosinophils 4.2 % (0.0-10.0); %Lymphocytes 39.5 % (21.0-51.0); %Monocytes 6.1 % (0.0-10.0); %Neutrophils 49.9 % (42.0-75.0); Hemoglobin 11.5 g/dL (12.0-16.0); Mean Corpuscular HGB CONC 34.1 g/dL (32.0-36.0); Mean Corpuscular Hemoglobin 28.4 pg (27.0-31.0); Mean Corpuscular Volume 83.3 fL (78.0-98.0); Mean Platelet Volume 7.4 fL (7.4-10.4); Platelet Count 421 thou/uL (130-400); RBC Distribution Width 12.2 % (11.5-14.5); Red Blood Cell (RBC) Count 4.05 mill/uL (4.20-5.40); White Blood Cell (WBC) Count 9.3 thou/uL (4.8-10.8)
[2022-02-23 04:33] LABS: Anion Gap 10 mmol/L (10-20); BUN (Urea Nitrogen) Less than 4 mg/dL (7.0-18.7); Calc. Creatinine Clearance 155 mL/min (70-130); Calcium 7.8 mg/dL (7.8-10.44); Carbon Dioxide 17 mmol/L (22-29); Chloride 115 mmol/L (98-107); Estimated GFR 121; Glucose 144 mg/dL (70-105); Potassium 3.4 mmol/L (3.5-5.1); Sodium 139 mmol/L (136-145)
[2022-02-23] MEDS: HumaLOG 300 UNITS/3 ML VIAL SC PRN ×2 (07:53→10:45)
[2022-02-23] MEDS ORDERED: Insulin Glargine 30 UNITS/0.3 ML VIAL SC SCH (09:00)
[2022-02-23] MEDS ORDERED: Potassium Chloride 20 MEQ TAB PO SCH (09:15)
[2022-02-23] MEDS: Heparin 5,000 UNITS/ML VIAL SC SCH (09:48)
[2022-02-23 10:43] VITALS: TEMP 98.1
== END 2022-02-23 12:19 | disposition home or self-care (01) | DRG 638 ==
LOC: IMCU/EMU 23:50
PROVIDERS: ADMIT Hospitalist; ATTEND Hospitalist
DX: E10.10 Type 1 diabetes mellitus with ketoacidosis without coma (principal); N17.9 Acute kidney failure, unspecified; Z20.822 Contact with and (suspected) exposure to COVID-19; E87.5 Hyperkalemia; Z79.4 Long term (current) use of insulin
CPT/HCPCS: 36415; 36416; 80048; 82010; 83036; 83735; 84100; 85025; J1644; J1815; J3480; J3490; J7042; U0002

== ENCOUNTER 2023-12-23 21:31 | Inpatient (IN) | payer SELFPAY ==
[2023-12-23] MEDS ORDERED: Ketorolac Tromethamine 30 MG (1 mL) VIAL ONE (22:55)
[2023-12-23] MEDS ORDERED: Ondansetron PF 4 MG/2 ML Vial ONE (23:13)
[2023-12-23] MEDS ORDERED: Ondansetron ODT 4 MG TAB ONE (23:13)
[2023-12-24] MEDS ORDERED: Sodium Chloride 0.9% 1,000 ML IV PRN ×4 (00:08)
[2023-12-24] MEDS ORDERED: Acetaminophen 650 MG Suppository PR PRN (00:08)
[2023-12-24] MEDS ORDERED: Electrolyte Replacement Protocol 1 EACH IVPB ONE (00:08)
[2023-12-24] MEDS ORDERED: NS 0.9% w/ 20 MEQ KCL 1,000 ML IV PRN ×2 (00:08)
[2023-12-24] MEDS ORDERED: Dextrose 5 %-0.45 % NaCl 1,000 ML IV PRN (00:08)
[2023-12-24] MEDS ORDERED: Dextrose 50% Abboject 50 ML SYRINGE SLOW IVP PRN ×2 (00:08→02:57)
[2023-12-24] MEDS ORDERED: Cefepime 2 GM in Sodium Chloride 0.9% 100 ML IVPB SCH (00:15)
[2023-12-24] MEDS ORDERED: Insulin Reg, Human 100 UNITS in Sodium Chloride 0.9% 100 ML IVPB SCH (00:15)
[2023-12-24 00:26] LABS: Hematocrit 25.2 % (36.0-47.0); Hemoglobin 8.3 g/dL (12.0-16.0); Mean Corpuscular HGB CONC 32.9 g/dL (32.0-36.0); Mean Corpuscular Hemoglobin 26.8 pg (27.0-31.0); Mean Corpuscular Volume 81.3 fL (78.0-98.0); Mean Platelet Volume 9.9 fL (7.4-10.4); Platelet Count 507 10x3/uL (130-400); RBC Distribution Width 13.2 % (11.5-14.5)
[2023-12-24 00:35] LABS: ALT (SGPT) 9 U/L (8-55); AST (SGOT) 13 U/L (5-34); Albumin 1.2 g/dL (3.5-5.0); Alkaline Phosphatase 170 U/L (40-110); Anion Gap 12 mmol/L (10-20); BUN (Urea Nitrogen) 32 mg/dL (7.0-18.7); Bilirubin, Total 0.1 mg/dL (0.2-1.2); Calc. Creatinine Clearance 0 mL/min (70-130); Calcium 7.6 mg/dL (7.8-10.44); Carbon Dioxide 15 mmol/L (22-29); Chloride 108 mmol/L (98-107); Estimated GFR 23; Globulin 3.4 g/dL (2.4-3.5); Glucose 217 mg/dL (70-105); Protein, Total 4.6 g/dL (6.0-8.3); Sodium 131 mmol/L (136-145)
[2023-12-24 00:46] LABS: Anisocytosis SLIGHT = 6-15 cells HPF (0-5); Band 28 % (5-11); Hypochromia SLIGHT = 6-15 cells HPF (0-5); Large Platelets 1.9 % (0-5); Lymphocytes 7 % (21-51); Metamyelocyte 1 % (0-0); Microcytosis SLIGHT = 6-15 cells HPF (0-5); Monocytes 3 % (0-10); Neutrophil 61 % (42-75); Platelet Adequacy Comment Platelets Increased; Poikilocytosis SLIGHT = 6-15 cells HPF (0-5); Polychromasia SLIGHT = 2-3 cells HPF (0-2)
[2023-12-24 00:50] LABS: Magnesium 1.6 mg/dL (1.6-2.6)
[2023-12-24] MEDS: Piperacillin/Tazobactam 3.375 GM in Sodium Chloride 0.9% 100 ML IVPB SCH ×3 (01:54→14:16)
[2023-12-24] MEDS: D5 1/2 NS w/20 mEq KCL 1,000 ML IV PRN (01:55)
[2023-12-24] MEDS ORDERED: Dextrose 5% in Water 1,000 ML IV PRN (02:57)
[2023-12-24] MEDS ORDERED: Glucagon 1 MG/ML KIT IM PRN (02:57)
[2023-12-24] MEDS: Albumin 25% 100 ML ONE (03:03)
[2023-12-24] MEDS: Sodium Bicarb 50 MEQ/50 ML Abboject 8.4% SYRINGE ONE (03:04)
[2023-12-24] MEDS: Sodium Bicarb 50 mEq/50 ML VIAL IVP SCH (03:05)
[2023-12-24] MEDS: Albumin 25% 25 GM (100 mL) BOT IVPB SCH ×2 (03:05→07:15)
[2023-12-24] MEDS: Lactated Ringer's 1,000 ML IV SCH ×2 (03:06→19:53)
[2023-12-24] MEDS: Insulin Glargine 30 UNITS/0.3 ML VIAL SC SCH ×2 (03:06→08:52)
[2023-12-24 03:56] LABS: Hemoglobin 7.7 g/dL (12.0-16.0); Mean Corpuscular HGB CONC 33.5 g/dL (32.0-36.0); Mean Corpuscular Hemoglobin 26.6 pg (27.0-31.0); Mean Corpuscular Volume 79.6 fL (78.0-98.0); Mean Platelet Volume 10.2 fL (7.4-10.4); Platelet Count 490 10x3/uL (130-400); RBC Distribution Width 13.2 % (11.5-14.5); Red Blood Cell (RBC) Count 2.89 mill/uL (4.20-5.40)
[2023-12-24 04:07] LABS: Iron 4 ug/dL (50-170); Iron Binding Capacity, Total 151 mcg/dL (265-497)
[2023-12-24 04:12] LABS: Troponin I Less than 0.010 ng/mL (< 0.028)
[2023-12-24 04:32] LABS: Band 32 % (5-11); Eosinophils 1 % (0-10); Hypochromia SLIGHT = 6-15 cells HPF (0-5); Lymphocytes 4 % (21-51); Microcytosis SLIGHT = 6-15 cells HPF (0-5); Monocytes 4 % (0-10); Myelocyte 1 % (0-0); Neutrophil 57 % (42-75); Platelet Adequacy Comment Platelets Increased; Polychromasia SLIGHT = 2-3 cells HPF (0-2); Promyelocytes 1 % (0-0)
[2023-12-24 04:33] VITALS: BMI 33.3
[2023-12-24] MEDS: Pantoprazole 40 MG VIAL IVP SCH (08:52)
[2023-12-24 10:15] LABS: Bilirubin Negative (Negative); Blood, Urine Trace (Negative); Clarity Turbid (Clear); Glucose, Urine (Dipstick) >=1000 mg/dL (Negative); Ketone, Urine Negative (Negative); Leukocyte 25 Leu/uL (Negative); Nitrite Negative (Negative); Protein, Urine (Dipstick) 300 mg/dL (Neg-Trace); RBC/HPF 0-3 HPF (0-3); Specific Gravity, Urine 1.015 (1.002-1.036); Urobilinogen Normal mg/dL (Less than 2)
[2023-12-24 10:16] LABS: Bacteria/HPF 1+ HPF (None Seen)
[2023-12-24] MEDS: Vancomycin 1 GM in Premix 1 BAG IVPB SCH (12:30)
[2023-12-24 13:17] LABS: Hematocrit 25.1 % (36.0-47.0); Hemoglobin 8.4 g/dL (12.0-16.0); Mean Corpuscular HGB CONC 33.5 g/dL (32.0-36.0); Mean Corpuscular Hemoglobin 26.9 pg (27.0-31.0); Mean Corpuscular Volume 80.4 fL (78.0-98.0); Mean Platelet Volume 10.1 fL (7.4-10.4); Platelet Count 437 10x3/uL (130-400); RBC Distribution Width 13.5 % (11.5-14.5); Red Blood Cell (RBC) Count 3.12 mill/uL (4.20-5.40)
[2023-12-24 13:40] LABS: ALT (SGPT) Less than 5 U/L (8-55); AST (SGOT) 9 U/L (5-34); Albumin 1.9 g/dL (3.5-5.0); Alkaline Phosphatase 96 U/L (40-110); Anion Gap 11 mmol/L (10-20); BUN (Urea Nitrogen) 30 mg/dL (7.0-18.7); Bilirubin, Total 0.3 mg/dL (0.2-1.2); Calc. Creatinine Clearance 40 mL/min (70-130); Carbon Dioxide 19 mmol/L (22-29); Chloride 108 mmol/L (98-107); Estimated GFR 23; Globulin 3.1 g/dL (2.4-3.5); Glucose 115 mg/dL (70-105); Potassium 4.4 mmol/L (3.5-5.1); Sodium 134 mmol/L (136-145)
[2023-12-24 13:46] LABS: Band 4 % (5-11); Burr Cells SLIGHT = 2-5 cells HPF (0-1); Eosinophils 2 % (0-10); Hypochromia SLIGHT = 6-15 cells HPF (0-5); Lymphocytes 9 % (21-51); Microcytosis SLIGHT = 6-15 cells HPF (0-5); Monocytes 7 % (0-10); Neutrophil 78 % (42-75); Nucleated RBC (Manual Ct) 1 % (0); Ovalocytes SLIGHT = 2-5 cells HPF (0-1); Platelet Adequacy Comment Platelets Increased; Poikilocytosis SLIGHT = 6-15 cells HPF (0-5); Polychromasia SLIGHT = 2-3 cells HPF (0-2)
[2023-12-24 14:54] LABS: Iron 4 ug/dL (50-170); Iron Binding Capacity, Total 156 mcg/dL (265-497)
[2023-12-24] MEDS: Acetaminophen 325 MG TAB PO PRN (18:23)
[2023-12-24] MEDS: Linezolid 600 MG in Premix 1 BAG IVPB SCH (21:26)
[2023-12-24] MEDS: Morphine 4 MG/ML VIAL SLOW IVP PRN (23:16)
[2023-12-25 06:09] LABS: Hematocrit 21.8 % (36.0-47.0); Hemoglobin 7.1 g/dL (12.0-16.0); Mean Corpuscular HGB CONC 32.6 g/dL (32.0-36.0); Mean Corpuscular Hemoglobin 26.5 pg (27.0-31.0); Mean Corpuscular Volume 81.3 fL (78.0-98.0); Mean Platelet Volume 10.2 fL (7.4-10.4); Platelet Count 499 10x3/uL (130-400); RBC Distribution Width 13.8 % (11.5-14.5); Red Blood Cell (RBC) Count 2.68 mill/uL (4.20-5.40)
[2023-12-25] MEDS: Insulin Lispro 100 UNIT/ML 10 ML VIAL SC PRN (06:24)
[2023-12-25 06:28] LABS: ALT (SGPT) 7 U/L (8-55); AST (SGOT) 10 U/L (5-34); Albumin 1.9 g/dL (3.5-5.0); Alkaline Phosphatase 107 U/L (40-110); Anion Gap 13 mmol/L (10-20); BUN (Urea Nitrogen) 30 mg/dL (7.0-18.7); Bilirubin, Total 0.3 mg/dL (0.2-1.2); Calc. Creatinine Clearance 35 mL/min (70-130); Carbon Dioxide 20 mmol/L (22-29); Chloride 103 mmol/L (98-107); Estimated GFR 20; Globulin 2.9 g/dL (2.4-3.5); Glucose 196 mg/dL (70-105); Potassium 4.3 mmol/L (3.5-5.1); Protein, Total 4.8 g/dL (6.0-8.3); Sodium 132 mmol/L (136-145)
[2023-12-25 06:36] LABS: Band 9 % (5-11); Eosinophils 2 % (0-10); Hypochromia SLIGHT = 6-15 cells HPF (0-5); Lymphocytes 12 % (21-51); Monocytes 3 % (0-10); Neutrophil 74 % (42-75); Platelet Adequacy Comment Platelets Increased; Polychromasia SLIGHT = 2-3 cells HPF (0-2); Smudge Cells 5.9 %
[2023-12-25] MEDS: Sodium Bicarbonate 75 MEQ in Sodium Chloride 0.45% 1,000 ML IV SCH (10:31)
[2023-12-25] MEDS: Clindamycin/D5W 900 MG in Premix 1 BAG IVPB SCH (14:29)
[2023-12-25 14:55] LABS: Phosphorus 3.1 mg/dL (2.3-4.7)
[2023-12-25] MEDS: Acetaminophen/Codeine 30-300mg Tablet PO PRN (18:32)
[2023-12-25 18:43] LABS: Creatinine, Urine 76.94 mg/dL (47-110)
[2023-12-25] MEDS: Morphine 4 MG/ML VIAL SLOW IVP PRN (21:27)
[2023-12-26] MEDS: Ondansetron ODT 4 MG TAB PO PRN (00:56)
[2023-12-26 06:21] LABS: Hematocrit 20.2 % (36.0-47.0); Hemoglobin 6.4 g/dL (12.0-16.0); Mean Corpuscular HGB CONC 31.7 g/dL (32.0-36.0); Mean Corpuscular Hemoglobin 26.8 pg (27.0-31.0); Mean Corpuscular Volume 84.5 fL (78.0-98.0); Mean Platelet Volume 9.8 fL (7.4-10.4); Platelet Count 512 10x3/uL (130-400); RBC Distribution Width 14.2 % (11.5-14.5); Red Blood Cell (RBC) Count 2.39 mill/uL (4.20-5.40)
[2023-12-26 06:29] LABS: Anion Gap 13 mmol/L (10-20); BUN (Urea Nitrogen) 29 mg/dL (7.0-18.7); Calc. Creatinine Clearance 37 mL/min (70-130); Carbon Dioxide 19 mmol/L (22-29); Chloride 102 mmol/L (98-107); Estimated GFR 20; Glucose 120 mg/dL (70-105); Potassium 4.5 mmol/L (3.5-5.1); Sodium 129 mmol/L (136-145)
[2023-12-26 07:55] LABS: Burr Cells MODERATE= 6-15 cells HPF (0-1); Hypochromia SLIGHT = 6-15 cells HPF (0-5); Ovalocytes SLIGHT = 2-5 cells HPF (0-1); Platelet Adequacy Comment Platelets Increased; Poikilocytosis SLIGHT = 6-15 cells HPF (0-5); Polychromasia MODERATE = 3-4 cells HPF (0-2); Schistocytes SLIGHT = 2-5 cells HPF (0-1)
[2023-12-26 08:42] LABS: Band 23 % (5-11); Eosinophils 1 % (0-10); Lymphocytes 6 % (21-51); Monocytes 3 % (0-10); Neutrophil 67 % (42-75); Nucleated RBC (Manual Ct) 1 % (0)
[2023-12-26] MEDS: Ondansetron PF 4 MG/2 ML Vial IVP PRN (16:19)
[2023-12-26 19:37] LABS: Hematocrit 24.1 % (36.0-47.0); Hemoglobin 7.7 g/dL (12.0-16.0); Platelet Count 548 10x3/uL (130-400)
[2023-12-27 04:53] LABS: #Basophils 0.04 10x3/uL (0.0-0.2); %Basophils 0.2 % (0.0-1.0); %Eosinophils 2.3 % (0.0-10.0); %Monocytes 6.3 % (0.0-10.0); Hematocrit 22.2 % (36.0-47.0); Hemoglobin 7.2 g/dL (12.0-16.0); Mean Corpuscular HGB CONC 32.4 g/dL (32.0-36.0); Mean Corpuscular Hemoglobin 27.1 pg (27.0-31.0); Mean Corpuscular Volume 83.5 fL (78.0-98.0); Mean Platelet Volume 9.1 fL (7.4-10.4); Platelet Count 558 10x3/uL (130-400); RBC Distribution Width 14.1 % (11.5-14.5); Red Blood Cell (RBC) Count 2.66 mill/uL (4.20-5.40)
[2023-12-27 05:19] LABS: Anion Gap 12 mmol/L (10-20); BUN (Urea Nitrogen) 31 mg/dL (7.0-18.7); Calc. Creatinine Clearance 39 mL/min (70-130); Calcium 8.1 mg/dL (7.8-10.44); Carbon Dioxide 20 mmol/L (22-29); Chloride 100 mmol/L (98-107); Estimated GFR 21; Glucose 190 mg/dL (70-105); Potassium 4.6 mmol/L (3.5-5.1); Sodium 127 mmol/L (136-145)
[2023-12-28] MEDS: hydrOXYzine 25 MG TAB PO SCH (01:45)
[2023-12-28 06:55] LABS: #Basophils 0.04 10x3/uL (0.0-0.2); %Basophils 0.2 % (0.0-1.0); %Lymphocytes 16.8 % (21.0-51.0); %Monocytes 7.7 % (0.0-10.0); Hematocrit 24.9 % (36.0-47.0); Hemoglobin 8.1 g/dL (12.0-16.0); Mean Corpuscular HGB CONC 32.5 g/dL (32.0-36.0); Mean Corpuscular Hemoglobin 27.2 pg (27.0-31.0); Mean Corpuscular Volume 83.6 fL (78.0-98.0); Platelet Count 631 10x3/uL (130-400); RBC Distribution Width 14.3 % (11.5-14.5); Red Blood Cell (RBC) Count 2.98 mill/uL (4.20-5.40)
[2023-12-28 07:20] LABS: Anion Gap 20 mmol/L (10-20); BUN (Urea Nitrogen) 32 mg/dL (7.0-18.7); Calc. Creatinine Clearance 42 mL/min (70-130); Calcium 8.3 mg/dL (7.8-10.44); Carbon Dioxide 17 mmol/L (22-29); Chloride 104 mmol/L (98-107); Estimated GFR 21; Glucose 81 mg/dL (70-105); Potassium 4.7 mmol/L (3.5-5.1); Sodium 136 mmol/L (136-145)
[2023-12-28] MEDS ORDERED: Epoetin (ESRD) 10,000 UNITS/ML VIAL SC SCH (10:45)
[2023-12-28] MEDS: EPOETIN ALFA-EPBX (ESRD) 10,000 UNITS/ML VIAL SC SCH (13:37)
[2023-12-28 15:14] LABS: A/G Ratio 0.8 (0.7-1.7); Albumin 2.1 g/dL (2.9-4.4); Alpha 1 0.5 g/dL (0.0-0.4); Beta 0.7 g/dL (0.7-1.3); Gamma 0.5 g/dL (0.4-1.8); Globulin, Total 2.7 g/dL (2.2-3.9); M-Spike Not Observed g/dL (Not Observed); Protein Electrophoresis Intrp Note: (.)
[2023-12-29 06:07] LABS: #Basophils Less than 0.03 10x3/uL (0.0-0.2); %Basophils 0.1 % (0.0-1.0); %Eosinophils 3.1 % (0.0-10.0); %Lymphocytes 15.8 % (21.0-51.0); %Monocytes 7.7 % (0.0-10.0); %Neutrophils 71.5 % (42.0-75.0); Hematocrit 25.2 % (36.0-47.0); Hemoglobin 8.2 g/dL (12.0-16.0); Mean Corpuscular HGB CONC 32.5 g/dL (32.0-36.0); Mean Corpuscular Hemoglobin 27.2 pg (27.0-31.0); Mean Corpuscular Volume 83.7 fL (78.0-98.0); Mean Platelet Volume 8.5 fL (7.4-10.4); Platelet Count 665 10x3/uL (130-400); RBC Distribution Width 14.4 % (11.5-14.5); Red Blood Cell (RBC) Count 3.01 mill/uL (4.20-5.40)
[2023-12-29 06:29] LABS: Hemoglobin A1c 11.2 % (4.0-6.0)
[2023-12-29 06:50] LABS: Anion Gap 16 mmol/L (10-20); BUN (Urea Nitrogen) 33 mg/dL (7.0-18.7); Calc. Creatinine Clearance 40 mL/min (70-130); Calcium 8.4 mg/dL (7.8-10.44); Carbon Dioxide 19 mmol/L (22-29); Chloride 104 mmol/L (98-107); Estimated GFR 20; Glucose 90 mg/dL (70-105); Potassium 5.1 mmol/L (3.5-5.1); Sodium 134 mmol/L (136-145)
[2023-12-29 15:16] LABS: Albumin-Ur 49.1 % (.); Alpha 1 - Ur 16.8 % (.); Alpha 2 - Ur 13.3 % (.); Beta-Ur 12.6 % (.); Gamma-Ur 8.3 % (.); M-Spike,% Not Observed % (Not Observed); Protein, Urine 437.1 mg/dL (Not Estab.)
[2023-12-30 06:19] LABS: #Basophils 0.04 10x3/uL (0.0-0.2); %Basophils 0.3 % (0.0-1.0); %Eosinophils 3.4 % (0.0-10.0); %Lymphocytes 16.8 % (21.0-51.0); %Monocytes 6.5 % (0.0-10.0); %Neutrophils 69.9 % (42.0-75.0); Hematocrit 24.8 % (36.0-47.0); Hemoglobin 8.2 g/dL (12.0-16.0); Mean Corpuscular HGB CONC 33.1 g/dL (32.0-36.0); Mean Corpuscular Hemoglobin 26.7 pg (27.0-31.0); Mean Corpuscular Volume 80.8 fL (78.0-98.0); Mean Platelet Volume 8.3 fL (7.4-10.4); Platelet Count 694 10x3/uL (130-400); RBC Distribution Width 14.3 % (11.5-14.5); Red Blood Cell (RBC) Count 3.07 mill/uL (4.20-5.40)
[2023-12-30 06:36] LABS: Anion Gap 13 mmol/L (10-20); BUN (Urea Nitrogen) 34 mg/dL (7.0-18.7); Calc. Creatinine Clearance 42 mL/min (70-130); Calcium 8.3 mg/dL (7.8-10.44); Carbon Dioxide 17 mmol/L (22-29); Chloride 108 mmol/L (98-107); Estimated GFR 22; Glucose 233 mg/dL (70-105); Sodium 133 mmol/L (136-145)
[2023-12-30] MEDS: Insulin Glargine 30 UNITS/0.3 ML VIAL SC SCH (08:55)
[2023-12-30 13:25] VITALS: BMI 36.3
[2023-12-30] MEDS: Sodium Bicarbonate Tab 325 MG TAB PO SCH (14:51)
[2023-12-31 05:41] LABS: #Basophils 0.04 10x3/uL (0.0-0.2); %Basophils 0.3 % (0.0-1.0); %Eosinophils 3.5 % (0.0-10.0); %Lymphocytes 18.2 % (21.0-51.0); %Monocytes 7.8 % (0.0-10.0); %Neutrophils 67.9 % (42.0-75.0); Hematocrit 26.6 % (36.0-47.0); Hemoglobin 8.6 g/dL (12.0-16.0); Mean Corpuscular HGB CONC 32.3 g/dL (32.0-36.0); Mean Corpuscular Hemoglobin 27.2 pg (27.0-31.0); Mean Corpuscular Volume 84.2 fL (78.0-98.0); Mean Platelet Volume 8.4 fL (7.4-10.4); Platelet Count 767 10x3/uL (130-400); RBC Distribution Width 14.5 % (11.5-14.5); Red Blood Cell (RBC) Count 3.16 mill/uL (4.20-5.40)
[2023-12-31 06:04] LABS: Anion Gap 14 mmol/L (10-20); BUN (Urea Nitrogen) 30 mg/dL (7.0-18.7); Calc. Creatinine Clearance 44 mL/min (70-130); Calcium 8.6 mg/dL (7.8-10.44); Carbon Dioxide 19 mmol/L (22-29); Chloride 109 mmol/L (98-107); Estimated GFR 24; Glucose 160 mg/dL (70-105); Potassium 4.8 mmol/L (3.5-5.1); Sodium 137 mmol/L (136-145)
[2023-12-31] MEDS: cloNIDine 0.1 MG TAB PO SCH (20:41)
[2024-01-01] MEDS ORDERED: Sodium Bicarbonate 2.5 MEQ/5 ML SDV ONE (07:11)
[2024-01-01] MEDS ORDERED: Lidocaine 1% PF 5 ML VIAL ONE (07:12)
[2024-01-01 12:06] LABS: #Basophils 0.04 10x3/uL (0.0-0.2); %Basophils 0.3 % (0.0-1.0); %Eosinophils 3.2 % (0.0-10.0); %Lymphocytes 16.9 % (21.0-51.0); %Monocytes 6.9 % (0.0-10.0); %Neutrophils 71.3 % (42.0-75.0); Hematocrit 29.9 % (36.0-47.0); Hemoglobin 10.1 g/dL (12.0-16.0); Mean Corpuscular HGB CONC 33.8 g/dL (32.0-36.0); Mean Corpuscular Hemoglobin 28.1 pg (27.0-31.0); Mean Corpuscular Volume 83.3 fL (78.0-98.0); Mean Platelet Volume 8.5 fL (7.4-10.4); Platelet Count 793 10x3/uL (130-400); RBC Distribution Width 14.4 % (11.5-14.5); Red Blood Cell (RBC) Count 3.59 mill/uL (4.20-5.40)
[2024-01-01 12:21] LABS: Anion Gap 13 mmol/L (10-20); BUN (Urea Nitrogen) 23 mg/dL (7.0-18.7); Calc. Creatinine Clearance 49 mL/min (70-130); Calcium 8.7 mg/dL (7.8-10.44); Carbon Dioxide 20 mmol/L (22-29); Chloride 108 mmol/L (98-107); Estimated GFR 27; Glucose 76 mg/dL (70-105); Potassium 4.6 mmol/L (3.5-5.1); Sodium 136 mmol/L (136-145)
[2024-01-01] MEDS: DAPTOmycin 500 MG in Sodium Chloride 0.9% 50 ML IVPB SCH (13:40)
[2024-01-02 07:07] LABS: #Basophils 0.06 10x3/uL (0.0-0.2); %Basophils 0.4 % (0.0-1.0); %Eosinophils 3.7 % (0.0-10.0); %Lymphocytes 20.4 % (21.0-51.0); %Monocytes 7.6 % (0.0-10.0); %Neutrophils 66.6 % (42.0-75.0); Hematocrit 28.1 % (36.0-47.0); Hemoglobin 9.1 g/dL (12.0-16.0); Mean Corpuscular HGB CONC 32.4 g/dL (32.0-36.0); Mean Corpuscular Hemoglobin 26.3 pg (27.0-31.0); Mean Corpuscular Volume 81.2 fL (78.0-98.0); Mean Platelet Volume 8.2 fL (7.4-10.4); Platelet Count 830 10x3/uL (130-400); RBC Distribution Width 14.6 % (11.5-14.5); Red Blood Cell (RBC) Count 3.46 mill/uL (4.20-5.40)
[2024-01-02 07:24] LABS: Anion Gap 11 mmol/L (10-20); BUN (Urea Nitrogen) 23 mg/dL (7.0-18.7); Calc. Creatinine Clearance 44 mL/min (70-130); Calcium 8.4 mg/dL (7.8-10.44); Carbon Dioxide 18 mmol/L (22-29); Chloride 112 mmol/L (98-107); Estimated GFR 24; Glucose 130 mg/dL (70-105); Potassium 4.8 mmol/L (3.5-5.1); Sodium 136 mmol/L (136-145)
[2024-01-02] MEDS: Ergocalciferol 1.25 MG(50,000 UNITS) CAP PO SCH (08:59)
[2024-01-02] MEDS: Lidocaine 1% w/Epinephrine 1:100K 20 ML VIAL ONE (16:15)
[2024-01-03 04:14] LABS: #Basophils 0.05 10x3/uL (0.0-0.2); %Basophils 0.4 % (0.0-1.0); %Eosinophils 4.1 % (0.0-10.0); %Lymphocytes 27.8 % (21.0-51.0); %Monocytes 6.6 % (0.0-10.0); %Neutrophils 59.9 % (42.0-75.0); Hematocrit 25.3 % (36.0-47.0); Hemoglobin 8.3 g/dL (12.0-16.0); Mean Corpuscular HGB CONC 32.8 g/dL (32.0-36.0); Mean Corpuscular Hemoglobin 27.4 pg (27.0-31.0); Mean Corpuscular Volume 83.5 fL (78.0-98.0); Mean Platelet Volume 8.1 fL (7.4-10.4); Platelet Count 749 10x3/uL (130-400); RBC Distribution Width 14.5 % (11.5-14.5); Red Blood Cell (RBC) Count 3.03 mill/uL (4.20-5.40)
[2024-01-03 04:38] LABS: Anion Gap 9 mmol/L (10-20); BUN (Urea Nitrogen) 20 mg/dL (7.0-18.7); Calc. Creatinine Clearance 61 mL/min (70-130); Calcium 6.7 mg/dL (7.8-10.44); Carbon Dioxide 16 mmol/L (22-29); Chloride 114 mmol/L (98-107); Estimated GFR 35; Glucose 203 mg/dL (70-105); Magnesium 1.6 mg/dL (1.6-2.6); Potassium 3.7 mmol/L (3.5-5.1); Sodium 135 mmol/L (136-145)
[2024-01-03] MEDS: Calcium Gluc 4.6 MEQ/10 ML (100 MG/ML) SLOW IVP SCH (05:46)
[2024-01-03 10:34] LABS: ALT (SGPT) 10 U/L (8-55); AST (SGOT) 9 U/L (5-34); Albumin 1.3 g/dL (3.5-5.0); Alkaline Phosphatase 90 U/L (40-110); Bilirubin, Direct Less than 0.1 mg/dL (0.1-0.3); Bilirubin, Total 0.1 mg/dL (0.2-1.2); Protein, Total 4.2 g/dL (6.0-8.3)
[2024-01-03] MEDS: Albumin 25% 25 GM (100 mL) BOT IVPB SCH (12:30)
[2024-01-03] MEDS: Amlodipine 5 MG TAB PO SCH (17:38)
[2024-01-04 06:51] LABS: #Basophils 0.05 10x3/uL (0.0-0.2); %Basophils 0.4 % (0.0-1.0); %Eosinophils 3.4 % (0.0-10.0); %Lymphocytes 18.3 % (21.0-51.0); %Neutrophils 71.4 % (42.0-75.0); Hematocrit 27.6 % (36.0-47.0); Hemoglobin 8.9 g/dL (12.0-16.0); Mean Corpuscular HGB CONC 32.2 g/dL (32.0-36.0); Mean Corpuscular Hemoglobin 26.4 pg (27.0-31.0); Mean Corpuscular Volume 81.9 fL (78.0-98.0); Mean Platelet Volume 8.4 fL (7.4-10.4); Platelet Count 870 10x3/uL (130-400); RBC Distribution Width 14.6 % (11.5-14.5); Red Blood Cell (RBC) Count 3.37 mill/uL (4.20-5.40)
[2024-01-04 07:33] LABS: Anion Gap 16 mmol/L (10-20); BUN (Urea Nitrogen) 23 mg/dL (7.0-18.7); Calc. Creatinine Clearance 45 mL/min (70-130); Calcium 9.2 mg/dL (7.8-10.44); Carbon Dioxide 18 mmol/L (22-29); Chloride 110 mmol/L (98-107); Estimated GFR 24; Glucose 87 mg/dL (70-105); Magnesium 1.9 mg/dL (1.6-2.6); Potassium 4.5 mmol/L (3.5-5.1); Sodium 139 mmol/L (136-145)
[2024-01-04] MEDS: Amlodipine 5 MG TAB PO SCH (08:42)
[2024-01-04] MEDS: Lidocaine 1% w/Epinephrine 1:100K 20 ML VIAL ONE (10:51)
[2024-01-05 05:44] LABS: #Basophils 0.05 10x3/uL (0.0-0.2); %Basophils 0.4 % (0.0-1.0); %Eosinophils 3.2 % (0.0-10.0); %Lymphocytes 20.7 % (21.0-51.0); %Monocytes 6.2 % (0.0-10.0); %Neutrophils 68.9 % (42.0-75.0); Hematocrit 28.4 % (36.0-47.0); Hemoglobin 9.5 g/dL (12.0-16.0); Mean Corpuscular HGB CONC 33.5 g/dL (32.0-36.0); Mean Corpuscular Hemoglobin 27.2 pg (27.0-31.0); Mean Corpuscular Volume 81.4 fL (78.0-98.0); Mean Platelet Volume 8.2 fL (7.4-10.4); Platelet Count 831 10x3/uL (130-400); RBC Distribution Width 14.7 % (11.5-14.5); Red Blood Cell (RBC) Count 3.49 mill/uL (4.20-5.40)
[2024-01-05 06:07] LABS: Anion Gap 11 mmol/L (10-20); BUN (Urea Nitrogen) 25 mg/dL (7.0-18.7); Calc. Creatinine Clearance 49 mL/min (70-130); Calcium 8.6 mg/dL (7.8-10.44); Carbon Dioxide 21 mmol/L (22-29); Chloride 110 mmol/L (98-107); Estimated GFR 27; Glucose 196 mg/dL (70-105); Magnesium 1.9 mg/dL (1.6-2.6); Potassium 4.5 mmol/L (3.5-5.1); Sodium 137 mmol/L (136-145)
[2024-01-05] MEDS: Carvedilol 6.25 MG TAB PO SCH (17:01)
[2024-01-06 04:15] LABS: #Basophils 0.05 10x3/uL (0.0-0.2); %Basophils 0.4 % (0.0-1.0); %Lymphocytes 23.3 % (21.0-51.0); %Monocytes 6.7 % (0.0-10.0); %Neutrophils 66.1 % (42.0-75.0); Hematocrit 26.8 % (36.0-47.0); Hemoglobin 8.9 g/dL (12.0-16.0); Mean Corpuscular HGB CONC 33.2 g/dL (32.0-36.0); Mean Corpuscular Hemoglobin 27.6 pg (27.0-31.0); Mean Platelet Volume 8.4 fL (7.4-10.4); Platelet Count 704 10x3/uL (130-400); RBC Distribution Width 14.4 % (11.5-14.5); Red Blood Cell (RBC) Count 3.23 mill/uL (4.20-5.40)
[2024-01-06 04:48] LABS: Anion Gap 14 mmol/L (10-20); BUN (Urea Nitrogen) 30 mg/dL (7.0-18.7); Calc. Creatinine Clearance 44 mL/min (70-130); Calcium 8.2 mg/dL (7.8-10.44); Carbon Dioxide 20 mmol/L (22-29); Chloride 106 mmol/L (98-107); Estimated GFR 24; Glucose 286 mg/dL (70-105); Magnesium 1.9 mg/dL (1.6-2.6); Potassium 4.5 mmol/L (3.5-5.1); Sodium 135 mmol/L (136-145)
[2024-01-06] MEDS: Amlodipine 10 MG TAB PO SCH (07:57)
[2024-01-06 07:58] VITALS: BP 153/89
[2024-01-06 08:03] VITALS: TEMP 98.5
[2024-01-06] MEDS ORDERED: Insulin Glargine 30 UNITS/0.3 ML VIAL SC SCH (21:00)
== END 2024-01-06 15:56 | disposition home or self-care (01) | DRG 871 ==
LOC: ERS 21:31 → ERHOLD 23:29 → T4-A 12-24 01:44 → IMCU/EMU 12-24 01:50 → T4-A 12-24 18:16
PROVIDERS: ADMIT Student in an Organized Health Care Education/Training Program; ATTEND Family Medicine
PROC: 3E03329 Introduction of Other Anti-infective into Peripheral Vein, Percutaneous Approach (ICD-10-PCS; 2023-12-24)
PROC: 30233J1 Transfusion of Nonautologous Serum Albumin into Peripheral Vein, Percutaneous Approach (ICD-10-PCS; 2023-12-24)
PROC: 30233N1 Transfusion of Nonautologous Red Blood Cells into Peripheral Vein, Percutaneous Approach (ICD-10-PCS; 2023-12-26)
PROC: 02HV33Z Insertion of Infusion Device into Superior Vena Cava, Percutaneous Approach (ICD-10-PCS; 2024-01-01)
PROC: B5181ZA Fluoroscopy of Superior Vena Cava using Low Osmolar Contrast, Guidance (ICD-10-PCS; 2024-01-01)
PROC: 3E04329 Introduction of Other Anti-infective into Central Vein, Percutaneous Approach (ICD-10-PCS; 2024-01-01)
PROC: B548ZZA Ultrasonography of Superior Vena Cava, Guidance (ICD-10-PCS; 2024-01-01)
PROC: 0J9M0ZZ Drainage of Left Upper Leg Subcutaneous Tissue and Fascia, Open Approach (ICD-10-PCS; 2024-01-02)
PROC: 0J9M0ZZ Drainage of Left Upper Leg Subcutaneous Tissue and Fascia, Open Approach (ICD-10-PCS; principal; 2024-01-04)
DX: A41.02 Sepsis due to Methicillin resistant Staphylococcus aureus (principal); E10.10 Type 1 diabetes mellitus with ketoacidosis without coma; N17.0 Acute kidney failure with tubular necrosis; L02.416 Cutaneous abscess of left lower limb; L03.116 Cellulitis of left lower limb; E87.1 Hypo-osmolality and hyponatremia; N18.4 Chronic kidney disease, stage 4 (severe); E87.20 Acidosis, unspecified; R65.20 Severe sepsis without septic shock; T63.301A Toxic effect of unspecified spider venom, accidental (unintentional), initial encounter; E88.09 Other disorders of plasma-protein metabolism, not elsewhere classified; D63.1 Anemia in chronic kidney disease; E10.22 Type 1 diabetes mellitus with diabetic chronic kidney disease; N92.0 Excessive and frequent menstruation with regular cycle; R19.7 Diarrhea, unspecified; I12.9 Hypertensive chronic kidney disease with stage 1 through stage 4 chronic kidney disease, or unspecified chronic kidney disease; I08.1 Rheumatic disorders of both mitral and tricuspid valves; R35.89 Other polyuria; E10.40 Type 1 diabetes mellitus with diabetic neuropathy, unspecified; E55.9 Vitamin D deficiency, unspecified; E21.1 Secondary hyperparathyroidism, not elsewhere classified; D50.0 Iron deficiency anemia secondary to blood loss (chronic); Z79.4 Long term (current) use of insulin; Z98.891 History of uterine scar from previous surgery
CPT/HCPCS: 36415; 36416; 36430; 36569; 71045; 74176; 76882; 76937; 77001; 80048; 80053; 81001; 82040; 82306; 82570; 82728; 83010; 83036; 83540; 83550; 83615; 83735; 83970; 84100; 84145; 84155; 84156; 84165; 84166; 84484; 85025; 86141; 86850; 86900; 86901; 87040; 87070; 87077; 87081; 87186; 87205; 87324; 87449; 93005; 93010; 93306; 93970; 96374; 96375; 97139; C1751; C9113; J0612; J0878; J1815; J1885; J2020; J2270; J2405; J2543; J3370-JW; J3480; J3490; J7120; P9016; P9047; Q0162; Q5105

== ENCOUNTER 2025-01-07 23:59 | Inpatient (IN) | payer OTHER ==
[2025-01-08 02:19] VITALS: BMI 30.6
[2025-01-08] MEDS ORDERED: Dextrose 50% Abboject 50 ML SYRINGE SLOW IVP PRN (02:59)
[2025-01-08] MEDS ORDERED: Glucagon 1 MG/ML KIT IM PRN (02:59)
[2025-01-08] MEDS: Acetaminophen 325 MG TAB PO PRN (04:13)
[2025-01-08 04:23] LABS: #Basophils 0.03 10x3/uL (0.0-0.2); #Eosinophils 0.45 10x3/uL (0.0-0.7); #Monocytes 0.62 10x3/uL (0.11-0.59); #Neutrophils 4.83 10x3/uL (1.40-6.50); %Basophils 0.4 % (0.0-1.0); %Eosinophils 5.7 % (0.0-10.0); %Lymphocytes 24.4 % (21.0-51.0); %Monocytes 7.9 % (0.0-10.0); %Neutrophils 61.3 % (42.0-75.0); Hematocrit 32.2 % (36.0-47.0); Hemoglobin 10.4 g/dL (12.0-16.0); Mean Corpuscular Hemoglobin 27.4 pg (27.0-31.0); Mean Corpuscular Volume 85.0 fL (78.0-98.0); Platelet Count 324 10x3/uL (130-400); Red Blood Cell (RBC) Count 3.79 mill/uL (4.20-5.40); White Blood Cell (WBC) Count 7.87 10x3/uL (4.8-10.8)
[2025-01-08 04:45] LABS: Anion Gap 13 mmol/L (10-20); BUN (Urea Nitrogen) 17 mg/dL (7.0-18.7); Calc. Creatinine Clearance 16 mL/min (70-130); Calcium 7.8 mg/dL (7.8-10.44); Carbon Dioxide 24 mmol/L (22-29); Chloride 103 mmol/L (98-107); Glucose 182 mg/dL (70-105); Potassium 4.1 mmol/L (3.5-5.1); Sodium 136 mmol/L (136-145)
[2025-01-08] MEDS: Sodium Ferric Gluconate 250 MG in Sodium Chloride 0.9% 250 ML 250 ML IVPB SCH (05:07)
[2025-01-08] MEDS: Heparin 5,000 UNITS/ML VIAL SC SCH (08:47)
[2025-01-08] MEDS: Insulin Glargine 30 UNITS/0.3 ML VIAL SC SCH (08:47)
[2025-01-08] MEDS: Carvedilol 25 MG TAB PO SCH (08:47)
[2025-01-08 15:51] LABS: HBSAB Concentration 380.82 mIU/mL; Hep B Core Total Ab NONREACTIVE (NonReactive); Hep B Core Total Index 0.09 S/CO (0-0.79); Hep B Surf Ag NONREACTIVE S/CO (NonReactive); Hep C IgG Ab NONREACTIVE S/CO (NonReactive); Hep C Index 0.17 S/CO (0-0.79)
[2025-01-09 05:26] LABS: #Basophils 0.03 10x3/uL (0.0-0.2); #Eosinophils 0.29 10x3/uL (0.0-0.7); #Monocytes 0.42 10x3/uL (0.11-0.59); #Neutrophils 4.93 10x3/uL (1.40-6.50); %Basophils 0.4 % (0.0-1.0); %Eosinophils 3.9 % (0.0-10.0); %Lymphocytes 23.0 % (21.0-51.0); %Monocytes 5.7 % (0.0-10.0); %Neutrophils 66.7 % (42.0-75.0); Hematocrit 31.4 % (36.0-47.0); Hemoglobin 10.4 g/dL (12.0-16.0); Mean Corpuscular Hemoglobin 28.2 pg (27.0-31.0); Mean Corpuscular Volume 85.1 fL (78.0-98.0); Platelet Count 319 10x3/uL (130-400); Red Blood Cell (RBC) Count 3.69 mill/uL (4.20-5.40); White Blood Cell (WBC) Count 7.39 10x3/uL (4.8-10.8)
[2025-01-09 05:50] LABS: Anion Gap 15 mmol/L (10-20); BUN (Urea Nitrogen) 25 mg/dL (7.0-18.7); Calc. Creatinine Clearance 13 mL/min (70-130); Calcium 7.6 mg/dL (7.8-10.44); Carbon Dioxide 22 mmol/L (22-29); Chloride 100 mmol/L (98-107); Glucose 120 mg/dL (70-105); Potassium 4.6 mmol/L (3.5-5.1); Sodium 132 mmol/L (136-145)
[2025-01-09] MEDS ORDERED: Heparin 10,000 UNITS/ 10 ML VIAL ONE (11:27)
[2025-01-09] MEDS: EPOETIN ALFA-EPBX (ESRD) 10,000 UNITS/ML VIAL IVP SCH (14:08)
[2025-01-09 16:24] VITALS: BP 185/99; TEMP 98.2
[2025-01-09] MEDS ORDERED: Mupirocin 1 GM TUBE TP SCH (21:00)
== END 2025-01-09 17:03 | disposition home or self-care (01) | DRG 637 ==
LOC: 2SE 01-08 01:04 → OBSVTOIN 01-08 02:57
PROVIDERS: ADMIT Internal Medicine; ATTEND Internal Medicine
DX: E10.65 Type 1 diabetes mellitus with hyperglycemia (principal); N18.6 End stage renal disease; I12.0 Hypertensive chronic kidney disease with stage 5 chronic kidney disease or end stage renal disease; E87.1 Hypo-osmolality and hyponatremia; D63.1 Anemia in chronic kidney disease; E66.9 Obesity, unspecified; D50.9 Iron deficiency anemia, unspecified; E83.51 Hypocalcemia; Z68.30 Body mass index [BMI] 30.0-30.9, adult; Z98.891 History of uterine scar from previous surgery; Z79.4 Long term (current) use of insulin; Z99.2 Dependence on renal dialysis; Z79.899 Other long term (current) drug therapy
CPT/HCPCS: 36415; 36416; 80048; 85025; 86704; 86706; 86803; 87340; J1644; J1815; J2916; J7050; Q5105

== ENCOUNTER 2025-02-12 16:30 | Inpatient (IN) | payer OTHER ==
[2025-02-12 17:16] LABS: #Basophils 0.05 10x3/uL (0.0-0.2); #Eosinophils 0.37 10x3/uL (0.0-0.7); #Monocytes 0.67 10x3/uL (0.11-0.59); #Neutrophils 8.14 10x3/uL (1.40-6.50); %Basophils 0.4 % (0.0-1.0); %Eosinophils 3.2 % (0.0-10.0); %Lymphocytes 20.5 % (21.0-51.0); %Monocytes 5.7 % (0.0-10.0); %Neutrophils 69.9 % (42.0-75.0); Hematocrit 35.6 % (36.0-47.0); Hemoglobin 11.6 g/dL (12.0-16.0); Mean Corpuscular Hemoglobin 28.0 pg (27.0-31.0); Mean Corpuscular Volume 86.0 fL (78.0-98.0); Platelet Count 337 10x3/uL (130-400); Red Blood Cell (RBC) Count 4.14 mill/uL (4.20-5.40); White Blood Cell (WBC) Count 11.66 10x3/uL (4.8-10.8)
[2025-02-12] MEDS ORDERED: Senokot S 8.6-50 MG TAB PO PRN (17:46)
[2025-02-12] MEDS ORDERED: Bisacodyl 10 MG SUPP PR PRN (17:46)
[2025-02-12] MEDS ORDERED: Glucagon 1 MG/ML KIT IM PRN (17:52)
[2025-02-12] MEDS ORDERED: Dextrose 50% Abboject 50 ML SYRINGE SLOW IVP PRN (17:52)
[2025-02-12] MEDS ORDERED: Nitroglycerin 50 MG/250 ML BOT 250 ML IVPB SCH (18:00)
[2025-02-12] MEDS ORDERED: Ondansetron PF 4 MG/2 ML Vial ONE (18:19)
[2025-02-12] MEDS: Ondansetron PF 4 MG/2 ML Vial IVP PRN (18:24)
[2025-02-12] MEDS: Insulin Glargine 30 UNITS/0.3 ML VIAL SC SCH (21:13)
[2025-02-12] MEDS: Prochlorperazine 10 MG/2 ML VIAL SLOW IVP PRN (21:13)
[2025-02-12 21:58] LABS: Cocaine Metabolite Screen Negative (Negative); THC/Cannabinoid Screen Negative (Negative); Tricyclic Screen Negative (Negative)
[2025-02-12] MEDS: Acetaminophen 325 MG TAB PO PRN (22:03)
[2025-02-13] MEDS: oxyCODONE/Acetaminophen 5 mg/325 mg Tablet PO PRN (03:49)
[2025-02-13 04:13] LABS: #Basophils 0.05 10x3/uL (0.0-0.2); #Eosinophils 0.36 10x3/uL (0.0-0.7); #Monocytes 0.80 10x3/uL (0.11-0.59); #Neutrophils 9.16 10x3/uL (1.40-6.50); %Basophils 0.4 % (0.0-1.0); %Eosinophils 3.0 % (0.0-10.0); %Lymphocytes 14.2 % (21.0-51.0); %Monocytes 6.6 % (0.0-10.0); %Neutrophils 75.4 % (42.0-75.0); Hematocrit 36.0 % (36.0-47.0); Hemoglobin 11.5 g/dL (12.0-16.0); Mean Corpuscular Hemoglobin 27.6 pg (27.0-31.0); Mean Corpuscular Volume 86.3 fL (78.0-98.0); Platelet Count 319 10x3/uL (130-400); Red Blood Cell (RBC) Count 4.17 mill/uL (4.20-5.40); White Blood Cell (WBC) Count 12.15 10x3/uL (4.8-10.8)
[2025-02-13 04:19] LABS: ALT (SGPT) 9 U/L (Less than 34); AST (SGOT) 14 U/L (11-34); Albumin 3.3 g/dL (3.1-4.5); Alkaline Phosphatase 63 U/L (40-110); Anion Gap 11 mmol/L (10-20); BUN (Urea Nitrogen) 7 mg/dL (7.0-18.7); Bilirubin, Direct 0.2 mg/dL (0.1-0.3); Bilirubin, Total 0.5 mg/dL (0.3-1.2); Calc. Creatinine Clearance 33 mL/min (70-130); Calcium 8.3 mg/dL (7.8-10.44); Carbon Dioxide 28 mmol/L (22-29); Chloride 103 mmol/L (98-107); Glucose 91 mg/dL (70-105); Magnesium 1.8 mg/dL (1.6-2.6); Potassium 3.4 mmol/L (3.5-5.1); Sodium 139 mmol/L (136-145)
[2025-02-13] MEDS: hydrALAZINE 20 MG/ML VIAL SLOW IVP PRN (05:18)
[2025-02-13 05:44] VITALS: BMI 31.0
[2025-02-13] MEDS ORDERED: Transdermal Patch Removal TOP SCH (08:00)
[2025-02-13] MEDS: Losartan 25 MG TAB PO SCH (14:50)
[2025-02-13] MEDS: Carvedilol 25 MG TAB PO SCH (17:39)
[2025-02-13] MEDS: Transdermal Patch Removal TOP SCH (20:32)
[2025-02-14 07:20] LABS: #Basophils 0.04 10x3/uL (0.0-0.2); #Eosinophils 0.41 10x3/uL (0.0-0.7); #Monocytes 0.65 10x3/uL (0.11-0.59); #Neutrophils 5.68 10x3/uL (1.40-6.50); %Basophils 0.4 % (0.0-1.0); %Eosinophils 4.6 % (0.0-10.0); %Lymphocytes 23.9 % (21.0-51.0); %Monocytes 7.3 % (0.0-10.0); %Neutrophils 63.5 % (42.0-75.0); Hematocrit 35.4 % (36.0-47.0); Hemoglobin 10.8 g/dL (12.0-16.0); Mean Corpuscular Hemoglobin 27.6 pg (27.0-31.0); Mean Corpuscular Volume 90.3 fL (78.0-98.0); Platelet Count 288 10x3/uL (130-400); Red Blood Cell (RBC) Count 3.92 mill/uL (4.20-5.40); White Blood Cell (WBC) Count 8.95 10x3/uL (4.8-10.8)
[2025-02-14 07:44] LABS: ALT (SGPT) 9 U/L (Less than 34); AST (SGOT) 12 U/L (11-34); Albumin 2.7 g/dL (3.1-4.5); Alkaline Phosphatase 66 U/L (40-110); Anion Gap 13 mmol/L (10-20); BUN (Urea Nitrogen) 19 mg/dL (7.0-18.7); Bilirubin, Total 0.2 mg/dL (0.3-1.2); Calc. Creatinine Clearance 15 mL/min (70-130); Calcium 7.9 mg/dL (7.8-10.44); Carbon Dioxide 23 mmol/L (22-29); Chloride 102 mmol/L (98-107); Globulin 2.5 g/dL (2.4-3.5); Glucose 173 mg/dL (70-105); Magnesium 2.0 mg/dL (1.6-2.6); Potassium 4.4 mmol/L (3.5-5.1); Sodium 134 mmol/L (136-145)
[2025-02-14] MEDS: Losartan 25 MG TAB PO SCH (08:13)
[2025-02-14] MEDS ORDERED: Iopamidol-370 76% 500 ML MDV (1 ML CHARGE) ONE (11:39)
[2025-02-14 17:08] VITALS: BP 149/83; TEMP 98.1
== END 2025-02-14 17:14 | disposition home or self-care (01) | DRG 640 ==
LOC: SUATTDRO 16:30 → ERS 16:30 → ERHOLD 17:39 → CCU 20:06 → T4-A 02-13 14:12
PROVIDERS: ADMIT Family Medicine; ATTEND Internal Medicine
DX: E87.70 Fluid overload, unspecified (principal); J96.01 Acute respiratory failure with hypoxia; N18.6 End stage renal disease; I12.0 Hypertensive chronic kidney disease with stage 5 chronic kidney disease or end stage renal disease; I16.0 Hypertensive urgency; E10.22 Type 1 diabetes mellitus with diabetic chronic kidney disease; D63.1 Anemia in chronic kidney disease; Z99.2 Dependence on renal dialysis; Z79.4 Long term (current) use of insulin; Z98.891 History of uterine scar from previous surgery; Z98.890 Other specified postprocedural states; Z79.899 Other long term (current) drug therapy
CPT/HCPCS: 36415; 36416; 71275; 80048; 80053; 80076; 80306; 80307; 83036; 83735; 83880; 84443; 85025; 93005; 94760; 96374; 96375; J0360; J0780; J1815; J2405; J3010; Q9967

== ENCOUNTER 2025-04-15 15:54 | Emergency (ER) | payer OTHER ==
[2025-04-15] MEDS ORDERED: Ondansetron PF 4 MG/2 ML Vial ONE (17:02)
[2025-04-15] MEDS ORDERED: Pantoprazole 40 MG VIAL ONE (17:03)
[2025-04-15 17:12] LABS: BHCG - Serum Negative (NEGATIVE); Pregs Control Background? CLEAR/WHITE (CLR/WHITE); Pregs Control Bar Appear? YES (CONTROL BAR)
[2025-04-15 17:15] LABS: #Basophils 0.07 10x3/uL (0.0-0.2); #Eosinophils 0.34 10x3/uL (0.0-0.7); #Monocytes 0.77 10x3/uL (0.11-0.59); #Neutrophils 5.08 10x3/uL (1.40-6.50); %Basophils 0.8 % (0.0-1.0); %Eosinophils 4.1 % (0.0-10.0); %Lymphocytes 23.3 % (21.0-51.0); %Monocytes 9.3 % (0.0-10.0); %Neutrophils 61.7 % (42.0-75.0); Hematocrit 34.4 % (36.0-47.0); Hemoglobin 11.0 g/dL (12.0-16.0); Mean Corpuscular Hemoglobin 27.6 pg (27.0-31.0); Mean Corpuscular Volume 86.4 fL (78.0-98.0); Platelet Count 281 10x3/uL (130-400); Red Blood Cell (RBC) Count 3.98 mill/uL (4.20-5.40); White Blood Cell (WBC) Count 8.25 10x3/uL (4.8-10.8)
[2025-04-15 17:21] LABS: ALT (SGPT) 20 U/L (Less than 34); AST (SGOT) 21 U/L (11-34); Albumin 3.5 g/dL (3.1-4.5); Alkaline Phosphatase 55 U/L (40-110); Anion Gap 17 mmol/L (10-20); BUN (Urea Nitrogen) 21 mg/dL (7.0-18.7); Bilirubin, Total 0.4 mg/dL (0.3-1.2); Calc. Creatinine Clearance 0 mL/min (70-130); Calcium 9.1 mg/dL (7.8-10.44); Carbon Dioxide 27 mmol/L (22-29); Chloride 101 mmol/L (98-107); Globulin 2.8 g/dL (2.4-3.5); Glucose 93 mg/dL (70-105); Lipase 8 U/L (8-78); Potassium 4.9 mmol/L (3.5-5.1); Sodium 140 mmol/L (136-145)
== END 2025-04-15 18:56 | disposition home or self-care (01) ==
LOC: ERS 15:54
DX: R10.9 Unspecified abdominal pain (principal); E10.22 Type 1 diabetes mellitus with diabetic chronic kidney disease; N18.6 End stage renal disease; I12.0 Hypertensive chronic kidney disease with stage 5 chronic kidney disease or end stage renal disease; Z99.2 Dependence on renal dialysis
CPT/HCPCS: 76705; 80053; 83690; 84484; 84703; 85025; 93005; 96361; 96374; 96375; J2270; J2405; J2470

== ENCOUNTER 2025-04-24 20:43 | Inpatient (IN) | payer OTHER, MEDICAID ==
[2025-04-24 22:41] VITALS: BMI 31.9
[2025-04-24] MEDS ORDERED: Ondansetron PF 4 MG/2 ML Vial IVP PRN (23:27)
[2025-04-24] MEDS ORDERED: Acetaminophen 325 MG TAB PO PRN (23:27)
[2025-04-25] MEDS ORDERED: Glucagon 1 MG/ML KIT IM PRN (00:24)
[2025-04-25] MEDS ORDERED: Dextrose 50% Abboject 50 ML SYRINGE SLOW IVP PRN (00:24)
[2025-04-25] MEDS: HYDROcodone/Acetaminophen 5/325 mg Tablet PO PRN (00:42)
[2025-04-25 04:52] LABS: #Basophils 0.03 10x3/uL (0.0-0.2); #Eosinophils 0.28 10x3/uL (0.0-0.7); #Monocytes 0.86 10x3/uL (0.11-0.59); #Neutrophils 5.26 10x3/uL (1.40-6.50); %Basophils 0.4 % (0.0-1.0); %Eosinophils 3.4 % (0.0-10.0); %Lymphocytes 20.4 % (21.0-51.0); %Monocytes 10.6 % (0.0-10.0); %Neutrophils 64.7 % (42.0-75.0); Hematocrit 30.2 % (36.0-47.0); Hemoglobin 9.5 g/dL (12.0-16.0); Mean Corpuscular Hemoglobin 28.0 pg (27.0-31.0); Mean Corpuscular Volume 89.1 fL (78.0-98.0); Platelet Count 262 10x3/uL (130-400); Red Blood Cell (RBC) Count 3.39 mill/uL (4.20-5.40); White Blood Cell (WBC) Count 8.13 10x3/uL (4.8-10.8)
[2025-04-25 05:00] LABS: Anion Gap 15 mmol/L (10-20); BUN (Urea Nitrogen) 24 mg/dL (7.0-18.7); Calc. Creatinine Clearance 19 mL/min (70-130); Calcium 8.3 mg/dL (7.8-10.44); Carbon Dioxide 29 mmol/L (22-29); Chloride 97 mmol/L (98-107); Glucose 296 mg/dL (70-105); Potassium 4.3 mmol/L (3.5-5.1); Sodium 137 mmol/L (136-145)
[2025-04-25] MEDS: Carvedilol 25 MG TAB PO SCH ×2 (10:23→21:52)
[2025-04-25] MEDS: Insulin Glargine 30 UNITS/0.3 ML VIAL SC SCH (10:27)
[2025-04-26 05:04] LABS: #Basophils 0.03 10x3/uL (0.0-0.2); #Eosinophils 0.39 10x3/uL (0.0-0.7); #Monocytes 0.87 10x3/uL (0.11-0.59); #Neutrophils 4.85 10x3/uL (1.40-6.50); %Basophils 0.4 % (0.0-1.0); %Eosinophils 4.7 % (0.0-10.0); %Lymphocytes 25.8 % (21.0-51.0); %Monocytes 10.5 % (0.0-10.0); %Neutrophils 58.2 % (42.0-75.0); Hematocrit 30.4 % (36.0-47.0); Hemoglobin 9.7 g/dL (12.0-16.0); Mean Corpuscular Hemoglobin 28.5 pg (27.0-31.0); Mean Corpuscular Volume 89.4 fL (78.0-98.0); Platelet Count 246 10x3/uL (130-400); Red Blood Cell (RBC) Count 3.40 mill/uL (4.20-5.40); White Blood Cell (WBC) Count 8.32 10x3/uL (4.8-10.8)
[2025-04-26] MEDS: HYDROcodone/Acetaminophen 5/325 mg Tablet PO PRN (05:07)
[2025-04-26 05:35] LABS: Anion Gap 16 mmol/L (10-20); BUN (Urea Nitrogen) 32 mg/dL (7.0-18.7); Calc. Creatinine Clearance 14 mL/min (70-130); Calcium 8.7 mg/dL (7.8-10.44); Carbon Dioxide 25 mmol/L (22-29); Chloride 98 mmol/L (98-107); Glucose 171 mg/dL (70-105); Potassium 4.5 mmol/L (3.5-5.1); Sodium 134 mmol/L (136-145)
[2025-04-26] MEDS ORDERED: Heparin 10,000 UNITS/ 10 ML VIAL CATH PRN (11:15)
[2025-04-26] MEDS: Pantoprazole 40 MG DR.TAB PO SCH (11:37)
[2025-04-26] MEDS: Insulin Glargine 30 UNITS/0.3 ML VIAL SC SCH (11:41)
[2025-04-26] MEDS: hydrALAZINE 20 MG/ML VIAL SLOW IVP PRN (14:19)
[2025-04-26] MEDS: Heparin 5,000 UNITS/ML VIAL SC SCH (20:14)
[2025-04-27 05:55] LABS: Anion Gap 17 mmol/L (10-20); BUN (Urea Nitrogen) 26 mg/dL (7.0-18.7); Calc. Creatinine Clearance 18 mL/min (70-130); Calcium 8.6 mg/dL (7.8-10.44); Carbon Dioxide 23 mmol/L (22-29); Chloride 99 mmol/L (98-107); Glucose 220 mg/dL (70-105); Potassium 4.5 mmol/L (3.5-5.1); Sodium 134 mmol/L (136-145)
[2025-04-27 07:56] VITALS: TEMP 98.3
[2025-04-27] MEDS: PNEUMOC 20-VAL CONJ-DIP CRM/PF 0.5 ML SYRINGE IM ONE (10:01)
[2025-04-27] MEDS: FLU (Fluarix Triv) 25-26 (6MOS UP)/PF 45 MCG/0.5 ML Syringe IM ONE (10:17)
[2025-04-27] MEDS: cloNIDine 0.1 MG TAB PO PRN (11:19)
[2025-04-27 12:36] VITALS: BP 174/89
== END 2025-04-27 12:40 | disposition home or self-care (01) | DRG 640 ==
LOC: OBS 20:43 → OBSVTOIN 04-26 09:50
PROVIDERS: ADMIT Internal Medicine; ATTEND Internal Medicine
DX: E87.70 Fluid overload, unspecified (principal); N18.6 End stage renal disease; I5A Non-ischemic myocardial injury (non-traumatic); I12.0 Hypertensive chronic kidney disease with stage 5 chronic kidney disease or end stage renal disease; R06.00 Dyspnea, unspecified; Z98.890 Other specified postprocedural states; E10.9 Type 1 diabetes mellitus without complications; Z99.2 Dependence on renal dialysis; D63.1 Anemia in chronic kidney disease; I16.0 Hypertensive urgency; R79.89 Other specified abnormal findings of blood chemistry; Z79.899 Other long term (current) drug therapy
CPT/HCPCS: 36415; 36416; 80048; 84484; 85025; 90471; 90677; 90935; 93306; G0009; G0257; J0360; J1644; J1815; Q0162

== ENCOUNTER 2025-05-02 22:44 | Observation (INO) | payer OTHER, MEDICAID ==
[2025-05-02] MEDS ORDERED: Glucagon 1 MG/ML KIT IM PRN (23:56)
[2025-05-02] MEDS ORDERED: Dextrose 50% Abboject 50 ML SYRINGE SLOW IVP PRN (23:56)
[2025-05-02 23:58] VITALS: BMI 29.5
[2025-05-03] MEDS ORDERED: Ondansetron PF 4 MG/2 ML Vial IVP PRN (06:31)
[2025-05-03] MEDS ORDERED: Calcium Carbonate 500 MG ChewTAB PO PRN (06:31)
[2025-05-03] MEDS ORDERED: Acetaminophen 325 MG TAB PO PRN (06:31)
[2025-05-03 07:04] LABS: #Basophils 0.04 10x3/uL (0.0-0.2); #Eosinophils 0.33 10x3/uL (0.0-0.7); #Monocytes 0.72 10x3/uL (0.11-0.59); #Neutrophils 4.12 10x3/uL (1.40-6.50); %Basophils 0.6 % (0.0-1.0); %Eosinophils 4.5 % (0.0-10.0); %Lymphocytes 27.8 % (21.0-51.0); %Monocytes 9.9 % (0.0-10.0); %Neutrophils 56.8 % (42.0-75.0); Hematocrit 30.7 % (36.0-47.0); Hemoglobin 10.0 g/dL (12.0-16.0); Mean Corpuscular Hemoglobin 28.7 pg (27.0-31.0); Mean Corpuscular Volume 88.0 fL (78.0-98.0); Platelet Count 300 10x3/uL (130-400); Red Blood Cell (RBC) Count 3.49 mill/uL (4.20-5.40); White Blood Cell (WBC) Count 7.26 10x3/uL (4.8-10.8)
[2025-05-03 07:13] LABS: Anion Gap 19 mmol/L (10-20); BUN (Urea Nitrogen) 41 mg/dL (7.0-18.7); Calc. Creatinine Clearance 12 mL/min (70-130); Calcium 8.8 mg/dL (7.8-10.44); Carbon Dioxide 27 mmol/L (22-29); Chloride 98 mmol/L (98-107); Glucose 132 mg/dL (70-105); Potassium 3.5 mmol/L (3.5-5.1); Sodium 140 mmol/L (136-145)
[2025-05-03] MEDS: Aspirin Chewable 81 MG TAB PO SCH (08:24)
[2025-05-03] MEDS: NIFEdipine XL 60 MG ER.TAB PO SCH (08:25)
[2025-05-03] MEDS: Losartan 25 MG TAB PO SCH (08:25)
[2025-05-03] MEDS: Pantoprazole 40 MG DR.TAB PO SCH (08:25)
[2025-05-03 11:27] VITALS: TEMP 97.5
[2025-05-03] MEDS: Insulin Glargine 30 UNITS/0.3 ML VIAL SC SCH (13:17)
[2025-05-03] MEDS: Carvedilol 25 MG TAB PO SCH (13:17)
[2025-05-03 17:51] VITALS: BP 144/77
== END 2025-05-03 19:33 | disposition home or self-care (01) ==
LOC: OBS 23:36
PROVIDERS: ADMIT Student in an Organized Health Care Education/Training Program; ATTEND Family Medicine
DX: R07.89 Other chest pain (principal); I12.0 Hypertensive chronic kidney disease with stage 5 chronic kidney disease or end stage renal disease; N18.6 End stage renal disease; E10.22 Type 1 diabetes mellitus with diabetic chronic kidney disease; E10.43 Type 1 diabetes mellitus with diabetic autonomic (poly)neuropathy; K31.84 Gastroparesis; Z99.2 Dependence on renal dialysis; Z93.0 Tracheostomy status; Z79.4 Long term (current) use of insulin; Z79.899 Other long term (current) drug therapy
CPT/HCPCS: 36415; 36416; 78452; 80048; 85025; 90935; 93017; A9502; G0257; G0378; J1815; J2785

== ENCOUNTER 2025-05-14 16:33 | Inpatient (IN) | payer OTHER, MEDICAID ==
[2025-05-14 17:12] LABS: #Basophils 0.07 10x3/uL (0.0-0.2); #Eosinophils 0.42 10x3/uL (0.0-0.7); #Monocytes 0.99 10x3/uL (0.11-0.59); #Neutrophils 9.27 10x3/uL (1.40-6.50); %Basophils 0.6 % (0.0-1.0); %Eosinophils 3.4 % (0.0-10.0); %Lymphocytes 12.5 % (21.0-51.0); %Monocytes 8.0 % (0.0-10.0); %Neutrophils 75.0 % (42.0-75.0); Hematocrit 34.8 % (36.0-47.0); Hemoglobin 11.2 g/dL (12.0-16.0); Mean Corpuscular Hemoglobin 28.1 pg (27.0-31.0); Mean Corpuscular Volume 87.2 fL (78.0-98.0); Platelet Count 371 10x3/uL (130-400); Red Blood Cell (RBC) Count 3.99 mill/uL (4.20-5.40); White Blood Cell (WBC) Count 12.36 10x3/uL (4.8-10.8)
[2025-05-14 17:25] LABS: ALT (SGPT) 20 U/L (Less than 34); AST (SGOT) 17 U/L (11-34); Albumin 4.1 g/dL (3.1-4.5); Alkaline Phosphatase 112 U/L (40-110); Anion Gap 23 mmol/L (10-20); BUN (Urea Nitrogen) 60 mg/dL (7.0-18.7); Bilirubin, Total 0.6 mg/dL (0.3-1.2); Calc. Creatinine Clearance 0 mL/min (70-130); Calcium 9.2 mg/dL (7.8-10.44); Carbon Dioxide 22 mmol/L (22-29); Chloride 97 mmol/L (98-107); Globulin 3.0 g/dL (2.4-3.5); Glucose 252 mg/dL (70-105); Magnesium 2.2 mg/dL (1.6-2.6); Potassium 5.0 mmol/L (3.5-5.1); Sodium 137 mmol/L (136-145)
[2025-05-14] MEDS ORDERED: Dextrose 50% Abboject 50 ML SYRINGE SLOW IVP PRN (17:28)
[2025-05-14] MEDS ORDERED: INSULIN REGULAR IN 0.9 % NACL 100 ML IVPB SCH (17:30)
[2025-05-14 18:08] LABS: BHCG - Serum Negative (NEGATIVE); Pregs Control Background? CLEAR/WHITE (CLR/WHITE); Pregs Control Bar Appear? YES (CONTROL BAR)
[2025-05-14] MEDS ORDERED: Dextrose 50% Abboject 50 ML SYRINGE ONE (18:09)
[2025-05-14 19:19] LABS: Anion Gap 25 mmol/L (10-20); BUN (Urea Nitrogen) 62 mg/dL (7.0-18.7); Calc. Creatinine Clearance 0 mL/min (70-130); Calcium 9.1 mg/dL (7.8-10.44); Carbon Dioxide 21 mmol/L (22-29); Chloride 97 mmol/L (98-107); Glucose 197 mg/dL (70-105); Potassium 5.1 mmol/L (3.5-5.1); Sodium 138 mmol/L (136-145)
[2025-05-14 19:33] LABS: Actual Bicarbonate (HCO3v) 20.8 mEq/L (22-28); Base Excess -4.7 mEq/L (-2.0 to +3.0); Calcium, Ionized (venous) 1.10 mmol/L (1.16-1.32); Chloride (VBG) 94 mmol/L (98-106); Hematocrit-VBG 35 % (36.0-47.0); Hemoglobin (Hb) 12.0 g/dL (11.7-15.5); Potassium (VBG) 4.72 mmol/L (3.70-5.30); Sodium 135 mmol/L (133-146)
[2025-05-14 20:08] VITALS: BMI 32.2
[2025-05-14] MEDS: Acetaminophen 325 MG TAB PO PRN (20:19)
[2025-05-14] MEDS ORDERED: Metoclopramide HCl 10 MG (2 mL) VIAL IVP PRN (21:54)
[2025-05-14 22:37] LABS: Influenza A by NAA Not Detected (NotDetected); Influenza B by NAA Not Detected (NotDetected); RSV by NAA Not Detected (NotDetected); SARS-CoV-2 NAA Rapid Test Not Detected (NotDetected)
[2025-05-14] MEDS: Heparin 10,000 UNITS/ 10 ML VIAL FS SCH (23:13)
[2025-05-14] MEDS: Ondansetron PF 4 MG/2 ML Vial IVP PRN (23:28)
[2025-05-15 00:29] LABS: Anion Gap 18 mmol/L (10-20); BUN (Urea Nitrogen) 29 mg/dL (7.0-18.7); Calc. Creatinine Clearance 18 mL/min (70-130); Calcium 9.1 mg/dL (7.8-10.44); Carbon Dioxide 27 mmol/L (22-29); Chloride 98 mmol/L (98-107); Glucose 120 mg/dL (70-105); Potassium 3.7 mmol/L (3.5-5.1); Sodium 139 mmol/L (136-145)
[2025-05-15 01:55] LABS: Anion Gap 17 mmol/L (10-20); BUN (Urea Nitrogen) 31 mg/dL (7.0-18.7); Calc. Creatinine Clearance 17 mL/min (70-130); Calcium 8.6 mg/dL (7.8-10.44); Carbon Dioxide 28 mmol/L (22-29); Chloride 98 mmol/L (98-107); Glucose 132 mg/dL (70-105); Potassium 4.1 mmol/L (3.5-5.1); Sodium 139 mmol/L (136-145)
[2025-05-15 08:00] LABS: #Basophils 0.04 10x3/uL (0.0-0.2); #Eosinophils 0.56 10x3/uL (0.0-0.7); #Monocytes 0.85 10x3/uL (0.11-0.59); #Neutrophils 5.94 10x3/uL (1.40-6.50); %Basophils 0.4 % (0.0-1.0); %Eosinophils 6.2 % (0.0-10.0); %Lymphocytes 17.8 % (21.0-51.0); %Monocytes 9.4 % (0.0-10.0); %Neutrophils 66.0 % (42.0-75.0); Hematocrit 31.0 % (36.0-47.0); Hemoglobin 10.0 g/dL (12.0-16.0); Mean Corpuscular Hemoglobin 28.3 pg (27.0-31.0); Mean Corpuscular Volume 87.8 fL (78.0-98.0); Platelet Count 321 10x3/uL (130-400); Red Blood Cell (RBC) Count 3.53 mill/uL (4.20-5.40); White Blood Cell (WBC) Count 9.02 10x3/uL (4.8-10.8)
[2025-05-15 08:13] LABS: Anion Gap 17 mmol/L (10-20); BUN (Urea Nitrogen) 35 mg/dL (7.0-18.7); Calc. Creatinine Clearance 14 mL/min (70-130); Calcium 9.0 mg/dL (7.8-10.44); Carbon Dioxide 27 mmol/L (22-29); Chloride 99 mmol/L (98-107); Glucose 117 mg/dL (70-105); Potassium 4.9 mmol/L (3.5-5.1); Sodium 138 mmol/L (136-145)
[2025-05-15 08:18] LABS: ALT (SGPT) 17 U/L (Less than 34); AST (SGOT) 17 U/L (11-34); Albumin 3.4 g/dL (3.1-4.5); Alkaline Phosphatase 53 U/L (40-110); Bilirubin, Direct 0.3 mg/dL (0.1-0.3); Bilirubin, Total 0.6 mg/dL (0.3-1.2)
[2025-05-15] MEDS: Pantoprazole 40 MG VIAL IVP SCH (08:51)
[2025-05-15] MEDS: Pantoprazole 40 MG DR.TAB PO SCH (08:52)
[2025-05-15] MEDS: Losartan 25 MG TAB PO SCH (08:57)
[2025-05-15] MEDS: NIFEdipine XL 60 MG ER.TAB PO SCH (08:58)
[2025-05-15] MEDS: Carvedilol 25 MG TAB PO SCH (08:59)
[2025-05-15] MEDS: Insulin Glargine 30 UNITS/0.3 ML VIAL SC SCH (10:09)
[2025-05-15] MEDS: Non-Formulary Item 1 EACH (Insulin Lispro [Insulin Lispro Kwikpen U-100] 100 UNIT/ML Insu SQ SCH (13:01)
[2025-05-15] MEDS: EPOETIN ALFA-EPBX (ESRD) 10,000 UNITS/ML VIAL IVP SCH (14:55)
[2025-05-15] MEDS: Metoclopramide HCl 10 MG (2 mL) VIAL IVP SCH (17:57)
[2025-05-16 06:28] LABS: Anion Gap 17 mmol/L (10-20); BUN (Urea Nitrogen) 23 mg/dL (7.0-18.7); Calc. Creatinine Clearance 19 mL/min (70-130); Calcium 8.6 mg/dL (7.8-10.44); Carbon Dioxide 27 mmol/L (22-29); Chloride 100 mmol/L (98-107); Glucose 414 mg/dL (70-105); Potassium 4.9 mmol/L (3.5-5.1); Sodium 139 mmol/L (136-145)
[2025-05-16 08:09] VITALS: TEMP 98.9
[2025-05-16] MEDS ORDERED: Non-Formulary Item 1 EACH (Hydralazine Hcl [Hydralazine Hcl] 100 MG Tablet) PO SCH (15:00)
[2025-05-16 15:28] VITALS: BP 118/65
== END 2025-05-16 17:21 | disposition home or self-care (01) | DRG 640 ==
LOC: SUATTDRO 16:33 → ERS 16:33 → ERHOLD 17:32 → IMCU/EMU 19:37 → T4-B 05-15 10:13
PROVIDERS: ADMIT Family Medicine; ATTEND Internal Medicine
PROC: 5A1D70Z Performance of Urinary Filtration, Intermittent, Less than 6 Hours Per Day (ICD-10-PCS; 2025-05-14)
PROC: 3E03329 Introduction of Other Anti-infective into Peripheral Vein, Percutaneous Approach (ICD-10-PCS; principal; 2025-05-16)
DX: E87.5 Hyperkalemia (principal); E10.10 Type 1 diabetes mellitus with ketoacidosis without coma; N18.6 End stage renal disease; I12.0 Hypertensive chronic kidney disease with stage 5 chronic kidney disease or end stage renal disease; K31.84 Gastroparesis; Z79.4 Long term (current) use of insulin; Z99.2 Dependence on renal dialysis; Z98.891 History of uterine scar from previous surgery; Z98.890 Other specified postprocedural states; D64.9 Anemia, unspecified; E10.22 Type 1 diabetes mellitus with diabetic chronic kidney disease
CPT/HCPCS: 36415; 36416; 76705; 80048; 80076; 82010; 82805; 83036; 83735; 84100; 84703; 85025; 87040; 87637; 90935; 93005; 94760; 96365; 96366; 96375; G0257; J1644; J1815; J2272; J2405; J2470; J2543; J2765; J7999; Q5105

== ENCOUNTER 2025-06-05 15:36 | Emergency (ER) | payer OTHER ==
[2025-06-05 16:23] LABS: #Basophils 0.06 10x3/uL (0.0-0.2); #Eosinophils 0.18 10x3/uL (0.0-0.7); #Monocytes 0.72 10x3/uL (0.11-0.59); #Neutrophils 7.68 10x3/uL (1.40-6.50); %Basophils 0.6 % (0.0-1.0); %Eosinophils 1.8 % (0.0-10.0); %Lymphocytes 12.6 % (21.0-51.0); %Monocytes 7.2 % (0.0-10.0); %Neutrophils 77.3 % (42.0-75.0); Hematocrit 38.8 % (36.0-47.0); Hemoglobin 12.5 g/dL (12.0-16.0); Mean Corpuscular Hemoglobin 28.2 pg (27.0-31.0); Mean Corpuscular Volume 87.6 fL (78.0-98.0); Platelet Count 372 10x3/uL (130-400); Red Blood Cell (RBC) Count 4.43 mill/uL (4.20-5.40); White Blood Cell (WBC) Count 9.94 10x3/uL (4.8-10.8)
[2025-06-05 16:40] LABS: BHCG - Serum Negative (NEGATIVE); Pregs Control Background? CLEAR/WHITE (CLR/WHITE); Pregs Control Bar Appear? YES (CONTROL BAR)
[2025-06-05 16:45] LABS: ALT (SGPT) 15 U/L (Less than 34); AST (SGOT) 20 U/L (11-34); Albumin 4.1 g/dL (3.1-4.5); Alkaline Phosphatase 70 U/L (40-110); Anion Gap 19 mmol/L (10-20); BUN (Urea Nitrogen) 29 mg/dL (7.0-18.7); Bilirubin, Total 0.6 mg/dL (0.3-1.2); Calc. Creatinine Clearance 0 mL/min (70-130); Calcium 9.5 mg/dL (7.8-10.44); Carbon Dioxide 26 mmol/L (22-29); Chloride 96 mmol/L (98-107); Globulin 3.4 g/dL (2.4-3.5); Glucose 255 mg/dL (70-105); Lipase 18 U/L (8-78); Magnesium 2.1 mg/dL (1.6-2.6); Potassium 4.6 mmol/L (3.5-5.1); Sodium 136 mmol/L (136-145)
[2025-06-05] MEDS ORDERED: HYDROcodone/Acetaminophen 5/325 mg Tablet ONE (17:22)
[2025-06-05] MEDS ORDERED: Amoxicillin/Potassium Clav 875 MG TAB ONE (17:22)
[2025-06-05 17:33] LABS: Bacteria/HPF 1+ HPF (None Seen); CAUTI Indications for Culture Immunosuppressed; Glucose, Urine (Dipstick) >=1000 mg/dL (Negative); Leukocyte 500 Leu/uL (Negative); Protein, Urine (Dipstick) 600 mg/dL (Neg-Trace); RBC/HPF 21-50 HPF (0-3); Specific Gravity, Urine 1.016 (1.002-1.036); WBC/HPF Greater than 50 HPF (0-3)
[2025-06-05 17:35] LABS: Urine Culture Reflex Yes Yes
[2025-06-05 19:23] LABS: Actual Bicarbonate (HCO3v) 27.7 mEq/L (22-28); Base Excess 2.2 mEq/L (-2.0 to +3.0); Calcium, Ionized (venous) 1.08 mmol/L (1.16-1.32); Chloride (VBG) 94 mmol/L (98-106); Hematocrit-VBG 41 % (36.0-47.0); Hemoglobin (Hb) 13.8 g/dL (11.7-15.5); Potassium (VBG) 4.17 mmol/L (3.70-5.30); Sodium 138 mmol/L (133-146)
== END 2025-06-05 18:43 | disposition home or self-care (01) ==
LOC: ERS 15:36
DX: J01.00 Acute maxillary sinusitis, unspecified (principal); R29.700 NIHSS score 0; E10.22 Type 1 diabetes mellitus with diabetic chronic kidney disease; I12.0 Hypertensive chronic kidney disease with stage 5 chronic kidney disease or end stage renal disease; N18.6 End stage renal disease; Z79.4 Long term (current) use of insulin
CPT/HCPCS: 36415; 36416; 70450; 70486; 71045; 80053; 81001; 82010; 82805; 83690; 83735; 84484; 84703; 85025; 87086; 93005; 94760; Q0162